=== PATIENT | male | born 1945 | race Caucasian/White ===

== ENCOUNTER 2017-05-20 10:06 | Emergency (ER) | payer MEDICARE, BC ==
[2017-05-20] MEDS ORDERED: ASPIRIN 81 MG TABLET, CHEWABLE PO ONE (10:14)
--- NOTE | 2017-05-20 10:32 | ER Document Report ---
ED Cardiac - General Mode of Arrival: Medic Information source: Patient TRAVEL OUTSIDE OF THE [place] IN LAST 30 DAYS: No - HPI Patient complains to provider of: Chest pain Quality of pain: Sharp Associated symptoms: Shortness of breath <CHELSEY DICK - Last Filed: 05/20/17 13:19> <AMADA HINKLE - Last Filed: 05/20/17 14:08> - General Chief Complaint: Chest Pain > 30 Stated Complaint: CHEST PAIN Time Seen by Provider: 05/20/17 10:21 Notes: Patient is a 71-year-old male that presents to the emergency department today with complaints of chest pain for the last 4-5 days. Patient states he has stayed in bed for most of the time because once he gets comfortable, the chest pain seems to go away. Patient states his chest pain is exacerbated with movement and deep breathing. Patient has a history of left shoulder surgeries and he states he has been having pain in his left shoulder for months and he is unsure if this is related to his chest pain. Patient describes the pain as sharp. Patient states he has had associated shortness of breath. Patient states to his knowledge he has never had a cardiac catheterization or stress test. (CHELSEY DICK) - Related Data Allergies/Adverse Reactions: Iodinated Contrast- Oral and IV Dye [IV Dye, Iodine Containing] Allergy (Severe , Verified 06/21/12 00:24) Generalized Itching Past Medical History - General Information source: Patient - Social History Smoking Status: Former Smoker Cigarette use (# per day): No Frequency of alcohol use: None Drug Abuse: None Lives with: Family Family History: Reviewed & Not Pertinent - Past Medical History Cardiac Medical History: Reports: Hx Heart Attack - pt states "silent", Hx Heart Murmur - pt states "sometimes it gets real low" GI Medical History: Reports: Hx Gastroesophageal Reflux Disease Musculoskeltal Medical History: Reports Hx Arthritis Past Surgical History: Reports: Hx Appendectomy - Immunizations Hx Diphtheria, Pertussis, Tetanus Vaccination: Yes <CHELSEY DICK - Last Filed: 05/20/17 13:19> Review of Systems - Review of Systems Constitutional: No symptoms reported EENT: No symptoms reported Cardiovascular: See HPI, Chest pain Respiratory: See HPI, Short of breath Gastrointestinal: No symptoms reported Genitourinary: No symptoms reported Male Genitourinary: No symptoms reported Musculoskeletal: See HPI, Joint pain - left shoulder Skin: No symptoms reported Hematologic/Lymphatic: No symptoms reported Neurological/Psychological: No symptoms reported -: Yes All other systems reviewed and negative <KAPILCHELSEY - Last Filed: 05/20/17 13:19> Physical Exam <CHELSEY DICK - Last Filed: 05/20/17 13:19> <AMADA HINKLE - Last Filed: 05/20/17 14:08> - Vital signs Vitals: Temp Pulse Resp BP Pulse Ox 98.9 F 68 21 H 124/72 94 05/20/17 10:20 05/20/17 10:20 05/20/17 10:20 05/20/17 10:20 05/20/17 10:20 - Notes Notes: PHYSICAL EXAM GENERAL: Alert, interacts well. No acute distress. HEAD: Normocephalic, atraumatic. EYES: Pupils equal, round, and reactive to light. Extraocular movements intact. ENT: Oral mucosa moist, tongue midline. NECK: Full range of motion. Supple. Trachea midline. LUNGS: Clear to auscultation bilaterally, no wheezes, rales, or rhonchi. No respiratory distress. CHEST: Mild anterior chest wall tenderness with palpation. HEART: Regular rate and rhythm. No murmurs, gallops, or rubs. ABDOMEN: Obese. Soft, non-tender. Non-distended. No guarding, rebound, or rigidity. Bowel sounds present in all 4 quadrants. EXTREMITIES: Moves all 4 extremities spontaneously. No edema, radial and dorsalis pedis pulses 2/4 bilaterally. No cyanosis. NEUROLOGICAL: Alert and oriented x3. Normal speech. PSYCH: Normal affect, normal mood. SKIN: Warm, dry, normal turgor. No rashes or lesions noted. (CHELSEY DICK) Course - Laboratory Result Diagrams: 05/20/17 10:18 05/20/17 10:18 <CHELSEY DICK - Last Filed: 05/20/17 13:19> - Laboratory Result Diagrams: 05/20/17 10:18 05/20/17 10:18 <AMADA HINKLE - Last Filed: 05/20/17 14:08> - Re-evaluation Re-evalutation: 05/20/17 11:25 Pt. requests to be transferred to [facility] 05/20/17 11:28 Spoke with [facility] transfer center, awaiting call back 05/20/17 11:[address] Childress on behalf of attending Dr. De La Paz from [facility]. Accepted patient. (CHELSEY DICK) 05/20/17 13:24 EKG shows new left bundle branch block but does not fit sgarbossa criteria, CBC shows leukocytosis of 12.9, CMP shows some acute renal failure with a BUN of 20 and creatinine of 2.26, cardiac enzymes are grossly elevated with a CK of 829, CK-MB of 14.8 and troponin of 42.3, proBNP elevated at 2090, chest x-ray shows cardiomegaly without failure. Patient's pain is relieved while lying flat, worsened when taking deep breaths. Patient was given aspirin by EMS. Discussed patient's non-STEMI with [facility], resident accepted on behalf of Dr. De La Paz, patient will be transported shortly. 05/20/17 13:26 Treated with therapeutic dose of Lovenox, 1 mg/kg. 05/20/17 14:07 Pain-free, vital signs stable, transport at bedside, I just answered more questions for the patient and his daughter, patient is stable for transport. Repeat troponin is pending per [facility]'s request. (AMADA HINKLE) - Vital Signs Vital signs: Temp Pulse Resp BP Pulse Ox 98.9 F 68 22 H 116/66 96 05/20/17 10:20 05/20/17 10:20 05/20/17 13:01 05/20/17 13:01 05/20/17 11:30 - Laboratory Laboratory results interpreted by id: 05/20/17 05/20/17 05/20/17 10:18 10:18 10:18 WBC 12.9 H RBC 4.30 L Plt Count 116 L Seg Neutrophils % 83.1 H Lymphocytes % 6.5 L Absolute Neutrophils 10.7 H Sodium 135.4 L Creatinine 2.26 H Est GFR ( Amer) 35 L Est GFR (Non-Af Amer) 29 L Total Bilirubin 1.6 H Direct Bilirubin 0.6 H AST 127 H Creatine Kinase 829 H CK-MB (CK-2) 14.80 H NT-Pro-B Natriuret Pep 05/20/17 10:18 WBC RBC Plt Count Seg Neutrophils % Lymphocytes % Absolute Neutrophils Sodium Creatinine Est GFR ( Amer) Est GFR (Non-Af Amer) Total Bilirubin Direct Bilirubin AST Creatine Kinase CK-MB (CK-2) NT-Pro-B Natriuret Pep 2089 H - EKG Interpretation by Me Additional EKG results interpreted by me: 05/20/17 13:25 EKG shows sinus rhythm at a rate of 68, left bundle branch block, 1 PVC, negative sgarbossa criteria per my interpretation. (AMADA HINKLE) Critical Care Note - Critical Care Note Total time excluding time spent on procedures (mins): 45 <AMADA HINKLE - Last Filed: 05/20/17 14:08> Discharge <CHELSEY DICK - Last Filed: 05/20/17 13:19> <AMADA HINKLE - Last Filed: 05/20/17 14:08> - Discharge Clinical Impression: NSTEMI (non-ST elevated myocardial infarction) Acute renal failure Qualifiers: Acute renal failure type: unspecified Qualified Code(s): N17.9 - Acute kidney failure, unspecified Condition: Fair Disposition: [facility] Referrals: TIERNEY WILDE PA [Primary Care Provider] - Follow up as needed Scribe Attestation: 05/20/17 13:26 I personally performed the services described in the documentation, reviewed and edited the documentation which was dictated to the scribe in my presence, and it accurately records my words and actions. (AMADA HINKLE) Scribe Documentation - Scribe Written by Cinthia:: Cinthia Sarabia, 05/20/2017 1259 acting as scribe for :: Nory <CHELSEY DICK - Last Filed: 05/20/17 13:19>
[2017-05-20 10:34] LABS: ABSOLUTE BASOPHILS # (AUTO) 0.1 10^3/uL (0.0-0.2); ABSOLUTE EOSINOPHILS # (AUTO) 0.2 10^3/uL (0.0-0.6); ABSOLUTE LYMPHOCYTES (AUTO) 0.8 10^3/uL (0.5-4.7); ABSOLUTE MONOCYTES (AUTO) 1.1 10^3/uL (0.1-1.4); ABSOLUTE NEUT (AUTO) 10.7 10^3/uL (1.7-8.2); BASOPHILS % (AUTO) 0.5 % (0-2); EOSINOPHILS % (AUTO) 1.2 % (0-6); HEMATOCRIT 39.9 % (37.9-51.0); HEMOGLOBIN 13.7 g/dL (13.5-17.0); HGB HCT DIFFERENCE 1.2; LYMPHOCYTES % (AUTO) 6.5 % (13-45); MEAN CORPUSCULAR HGB CONC 34.5 g/dL (32.0-36.0); MEAN CORPUSCULAR VOLUME 93 fl (80-97); MONOCYTES % (AUTO) 8.7 % (3-13); RED CELL DISTRIBUTION WIDTH 12.8 % (11.5-14.0); SEGMENTED NEUTROPHILS % (AUTO) 83.1 % (42-78); WHITE BLOOD COUNT 12.9 10^3/uL (4.0-10.5)
[2017-05-20 10:48] LABS: ALANINE AMINOTRANSFERASE 50 U/L (21-72); ALBUMIN 3.6 g/dL (3.5-5.0); ALKALINE PHOSPHATASE 88 U/L (38-126); ANION GAP 8 (5-19); ASPARTATE AMINO TRANSFERASE 127 U/L (17-59); BILIRUBIN,DIRECT 0.6 mg/dL (0.0-0.4); BILIRUBIN,TOTAL 1.6 mg/dL (0.2-1.3); BLOOD UREA NITROGEN 20 mg/dL (7-20); CALCIUM 8.7 mg/dL (8.4-10.2); CARBON DIOXIDE 26 mmol/L (22-30); CHLORIDE 101 mmol/L (98-107); CREATINE KINASE 829 U/L (55-170); CREATININE RESULT 2.26 mg/dL (0.52-1.25); GLUCOSE 92 mg/dL (75-110); POTASSIUM 3.6 mmol/L (3.6-5.0); SODIUM 135.4 mmol/L (137-145); TOTAL PROTEIN 7.4 g/dL (6.3-8.2)
[2017-05-20] MEDS ORDERED: NORMAL SALINE 1000 ML 1,000 ML IV ONE (10:56)
[2017-05-20 10:58] LABS: CREATINE KINASE MB 14.8 ng/mL (<4.55)
[2017-05-20 11:04] LABS: TROPONIN I 42.3 ng/mL
[2017-05-20] MEDS ORDERED: ENOXAPARIN SODIUM INJ 120 MG/0.8 ML DISP.SYRIN SUBCUT ONE (11:11)
--- NOTE | 2017-05-20 11:57 | RADIOLOGY REPORT (SQ) ---
EXAM DESCRIPTION: CHEST SINGLE VIEW COMPLETED DATE/TIME: 05/20/2017 11:24 am REASON FOR STUDY: cp COMPARISON: 06/21/2012 EXAM PARAMETERS: NUMBER OF VIEWS: One view. TECHNIQUE: Single frontal radiographic view of the chest acquired. RADIATION DOSE: NA LIMITATIONS: None. FINDINGS: LUNGS AND PLEURA: No opacities, masses or pneumothorax. No pleural effusion. MEDIASTINUM AND HILAR STRUCTURES: No masses. Contour normal. HEART AND VASCULAR STRUCTURES: Cardiomegaly. There is no chelo CHF. BONES: No acute findings. HARDWARE: None in the chest. OTHER: No other significant finding. IMPRESSION: Cardiomegaly without failure. TECHNICAL DOCUMENTATION: JOB ID: [id number]
[2017-05-20 13:06] VITALS: BP 116/66
--- NOTE | 2017-05-20 16:46 | EKG REPORT ---
SEVERITY:- ABNORMAL ECG - SINUS RHYTHM VENTRICULAR PREMATURE COMPLEX LEFT BUNDLE BRANCH BLOCK : Confirmed by: Nikky Durham MD 20-May-2017 16:44:50
== END 2017-05-20 14:00 | disposition short-term general hospital (02) ==
LOC: ER 10:06
DX: I21.4 Non-ST elevation (NSTEMI) myocardial infarction (principal); N17.9 Acute kidney failure, unspecified; R07.9 Chest pain, unspecified; R06.02 Shortness of breath; K21.9 Gastro-esophageal reflux disease without esophagitis; Z87.891 Personal history of nicotine dependence; I25.2 Old myocardial infarction
CPT/HCPCS: 93005; 99291; 96372; 96360; 36415; 82553; 82550; 85025; 80053; 84484; 83880; 71010; 93010; J1650; J7030

== ENCOUNTER → 2018-07-31 | Day surgery (SDC) | payer MEDICARE, BC ==
--- NOTE | 2018-07-31 14:23 | RADIOLOGY REPORT (SQ) ---
EXAM DESCRIPTION: ARTHRO SHOULDER INJECTION; FLUORO/NEEDLE PLACEMENT COMPLETED DATE/TIME: 07/31/2018 2:04 pm REASON FOR STUDY: PAIN IN LEFT SHOULDER (M25.512) M25.512 PAIN IN LEFT SHOULDER COMPARISON: None. FLUOROSCOPY TIME: 0.2 minutes 3 digital radiographic images saved to PACS. LIMITATIONS: None. PROCEDURE: Procedure, risks, benefits and alternatives explained to patient who then gave written co nsent. Patient gives a history of blistering and hives with skin contact to Iodinated contrast. He was pre-medicated with Benadryl Pepcid and prednisone, and full strength gadolinium was used for CT a rthrogram rather than any iodine based contrast. The posterior left shoulder was marked and a time o ut was called for correct procedure verification. Posterior entry site marked using fluoroscopic edilberto dance. Shoulder prepped and draped using sterile technique. Local anesthesia achieved using 5 mL 1% lidocaine injection. 22 gauge spinal needle introduced into the joint space under direct fluoroscop ic visualization. Gadolinium contrast instilled to confirm intra-articular position. Full strength gadolinium solution then injected. Needle removed and entry site covered with sterile bandage. No im mediate complications noted. TECHNIQUE: Digital images acquired during fluoroscopy and stored on PACS. Patient immediately take n to the CT suite for additional imaging. INJECTION LOCATION: Posterior left glenohumeral joint CONTRAST TYPE AND AMOUNT: 10 mL of a full-strength dotarem IMPRESSION: SUCCESSFUL NEEDLE PLACEMENT AND INJECTION FOR LEFT SHOULDER CT ARTHROGRAM USING POSTERIO R APPROACH. COMMENT: Quality ID 145: Final reports for procedures using fluoroscopy that document radiation exp osure indices, or exposure time and number of fluorographic images (if radiation exposure indices are not available) TECHNICAL DOCUMENTATION: JOB ID: [id number] [employer]- All Rights Reserved Reading location - IP/workstation name: [email or web address]
--- NOTE | 2018-07-31 14:30 | RADIOLOGY REPORT (SQ) ---
EXAM DESCRIPTION: CT LT UPPER EXTREMITY WITH COMPLETED DATE/TIME: 07/31/2018 2:15 pm REASON FOR STUDY: PAIN IN LEFT SHOULDER (M25.512) M25.512 PAIN IN LEFT SHOULDER COMPARISON: None. TECHNIQUE: Axial imaging performed through the leftshoulder with reformatted oblique coronal and obl ique sagittal imaging windowed for bone and soft tissues. All CT scanners at this facility use dose modulation, iterative reconstruction, and/or weight based d osing when appropriate to reduce radiation dose to as low as reasonably achievable (ALARA). [facility]: Dose Right [facility]: CareDose [facility]: Dose Right [facility]: Teradose 4D [facility]: Bactest RADIATION DOSE: CT Rad equipment meets quality standard of care and radiation dose reduction techniq ues were employed. CTDIvol: 26.1 mGy. DLP: 799 mGy-cm. mGy. LIMITATIONS: None. FINDINGS: SOFT TISSUES: Unremarkable. Left lung apex clear. No left axillary adenopathy. Streak a rtifact from battery pack, left-sided dual lead pacemaker BONY ARCHITECTURE: No fracture. No lytic or blastic lesions. Small subcortical cysts along the grea ter tuberosity left humeral head. GLENOHUMERAL JOINT: Normal alignment. No significant chondromalacia. ACROMION AND AC JOINT: Type 1 acromion with mild acromioclavicular joint hypertrophy ROTATOR CUFF: Small full-thickness tear anterior edge of the supraspinatus tendon extending into the rotator interval, best shown on axial image 25-28, sagittal reconstruction images 44 through 52, and coronal images 24-27. Infraspinatus, subscapularis are intact. GLENOID, LABRUM AND BICEPS: Intact long head intra-articular biceps and glenoid labrum OTHER: No other significant finding. IMPRESSION: Small full-thickness tear anterior edge of the left supraspinatus tendon extending into the rotator interval TECHNICAL DOCUMENTATION: JOB ID: [id number] Quality ID # [id number]: Final reports with documentation of one or more dose reduction techniques (e.g., Au tomated exposure control, adjustment of the mA and/or kV according to patient size, use of iterative reconstruction technique) 2010 [employer]- All Rights Reserved Reading location - IP/workstation name: [facility]
== END ==
LOC: RAD 07-30 12:35
PROVIDERS: ATTEND Orthopaedic Surgery
DX: M75.122 Complete rotator cuff tear or rupture of left shoulder, not specified as traumatic (principal); M25.512 Pain in left shoulder
CPT/HCPCS: 77002; 23350; 73201; A9576

== ENCOUNTER → 2018-08-27 | Outpatient (CLI) | payer MEDICARE, BC ==
[2018-08-27 10:46] LABS: HEMATOCRIT 43.9 % (37.9-51.0); HEMOGLOBIN 15.4 g/dL (13.5-17.0); MEAN CORPUSCULAR HGB CONC 35.2 g/dL (32.0-36.0); MEAN CORPUSCULAR VOLUME 94 fl (80-97); PLATELET COUNT 135 10^3/uL (150-450); RED BLOOD COUNT 4.68 10^6/uL (4.35-5.55); RED CELL DISTRIBUTION WIDTH 13.5 % (11.5-14.0); WHITE BLOOD COUNT 7.2 10^3/uL (4.0-10.5)
[2018-08-27 11:08] LABS: ANION GAP 8 (5-19); BLOOD UREA NITROGEN 21 mg/dL (7-20); CARBON DIOXIDE 28 mmol/L (22-30); CHLORIDE 104 mmol/L (98-107); GLUCOSE 84 mg/dL (75-110); POTASSIUM 3.7 mmol/L (3.6-5.0); SODIUM 140.3 mmol/L (137-145)
== END ==
LOC: OD 09:36
PROVIDERS: ATTEND Internal Medicine Cardiovascular Disease
DX: L02.414 Cutaneous abscess of left upper limb (principal)
CPT/HCPCS: 36415; 80048; 85027

== ENCOUNTER → 2018-09-03 | Outpatient (CLI) | payer MEDICARE, BC ==
[2018-09-03 13:27] LABS: ANION GAP 9 (5-19); BLOOD UREA NITROGEN 24 mg/dL (7-20); CALCIUM 9.1 mg/dL (8.4-10.2); CARBON DIOXIDE 23 mmol/L (22-30); CHLORIDE 105 mmol/L (98-107); GLUCOSE 96 mg/dL (75-110); POTASSIUM 5.1 mmol/L (3.6-5.0); SODIUM 136.8 mmol/L (137-145)
== END ==
LOC: OD 12:34
PROVIDERS: ATTEND Physician Assistant
DX: N18.3 Chronic kidney disease, stage 3 (moderate) (principal); Z79.899 Other long term (current) drug therapy
CPT/HCPCS: 36415; 80048

== ENCOUNTER → 2018-09-05 | Outpatient (CLI) | payer MEDICARE, BC ==
[2018-09-05 10:06] LABS: ANION GAP 7 (5-19); BLOOD UREA NITROGEN 21 mg/dL (7-20); CALCIUM 9.2 mg/dL (8.4-10.2); CARBON DIOXIDE 28 mmol/L (22-30); CHLORIDE 104 mmol/L (98-107); GLUCOSE 79 mg/dL (75-110); POTASSIUM 4.5 mmol/L (3.6-5.0); SODIUM 139.2 mmol/L (137-145)
== END ==
LOC: LAB 09:16
PROVIDERS: ATTEND Internal Medicine Cardiovascular Disease
DX: N18.3 Chronic kidney disease, stage 3 (moderate) (principal); Z79.899 Other long term (current) drug therapy
CPT/HCPCS: 36415; 80048

== ENCOUNTER → 2018-09-09 | Outpatient (CLI) | payer MEDICARE, BC ==
[2018-09-09 09:33] LABS: ANION GAP 6 (5-19); BLOOD UREA NITROGEN 18 mg/dL (7-20); CALCIUM 9.1 mg/dL (8.4-10.2); CARBON DIOXIDE 28 mmol/L (22-30); CHLORIDE 105 mmol/L (98-107); GLUCOSE 84 mg/dL (75-110); POTASSIUM 4.3 mmol/L (3.6-5.0); SODIUM 139.2 mmol/L (137-145)
== END ==
LOC: LAB 08:49
PROVIDERS: ATTEND Internal Medicine Cardiovascular Disease
DX: N18.3 Chronic kidney disease, stage 3 (moderate) (principal); Z79.899 Other long term (current) drug therapy
CPT/HCPCS: 36415; 80048

== ENCOUNTER → 2018-09-17 | Outpatient (CLI) | payer MEDICARE, BC ==
[2018-09-17 12:18] LABS: HEMATOCRIT 42.9 % (37.9-51.0); HEMOGLOBIN 14.9 g/dL (13.5-17.0); MEAN CORPUSCULAR HGB CONC 34.7 g/dL (32.0-36.0); MEAN CORPUSCULAR VOLUME 95 fl (80-97); PLATELET COUNT 141 10^3/uL (150-450); RED BLOOD COUNT 4.51 10^6/uL (4.35-5.55); RED CELL DISTRIBUTION WIDTH 13.8 % (11.5-14.0)
[2018-09-17 12:30] LABS: ANION GAP 6 (5-19); BLOOD UREA NITROGEN 22 mg/dL (7-20); CALCIUM 9.1 mg/dL (8.4-10.2); CARBON DIOXIDE 27 mmol/L (22-30); CHLORIDE 104 mmol/L (98-107); GLUCOSE 97 mg/dL (75-110); POTASSIUM 4.4 mmol/L (3.6-5.0); SODIUM 137.3 mmol/L (137-145)
== END ==
LOC: LAB 11:57
PROVIDERS: ATTEND Physician Assistant
DX: R06.00 Dyspnea, unspecified (principal)
CPT/HCPCS: 36415; 80048; 83880; 85027

== ENCOUNTER → 2018-11-19 | Outpatient (CLI) | payer MEDICARE, BC ==
[2018-11-19 09:14] LABS: ANION GAP 8 (5-19); BLOOD UREA NITROGEN 12 mg/dL (7-20); CALCIUM 9.3 mg/dL (8.4-10.2); CARBON DIOXIDE 27 mmol/L (22-30); CHLORIDE 103 mmol/L (98-107); GLUCOSE 88 mg/dL (75-110); POTASSIUM 3.7 mmol/L (3.6-5.0); SODIUM 138.1 mmol/L (137-145)
== END ==
LOC: LAB 08:18
PROVIDERS: ATTEND Physician Assistant
DX: I10 Essential (primary) hypertension (principal); Z79.899 Other long term (current) drug therapy
CPT/HCPCS: 36415; 80048

== ENCOUNTER → 2019-02-19 | Outpatient (CLI) | payer MEDICARE, BC ==
[2019-02-19 08:54] LABS: HEMATOCRIT 46.7 % (37.9-51.0); MEAN CORPUSCULAR HEMOGLOBIN 32.8 pg (27.0-33.4); MEAN CORPUSCULAR HGB CONC 34.2 g/dL (32.0-36.0); MEAN CORPUSCULAR VOLUME 96 fl (80-97); PLATELET COUNT 142 10^3/uL (150-450); RED BLOOD COUNT 4.88 10^6/uL (4.35-5.55); RED CELL DISTRIBUTION WIDTH 13.7 % (11.5-14.0); WHITE BLOOD COUNT 8.6 10^3/uL (4.0-10.5)
== END ==
LOC: LAB 08:31
PROVIDERS: ATTEND Physician Assistant
DX: M10.9 Gout, unspecified (principal); I50.9 Heart failure, unspecified; I25.5 Ischemic cardiomyopathy; I10 Essential (primary) hypertension; Z79.899 Other long term (current) drug therapy
CPT/HCPCS: 36415; 83880; 84550; 85027

== ENCOUNTER → 2019-05-18 | Outpatient (CLI) | payer MEDICARE, BC ==
[2019-05-18 09:54] LABS: ANION GAP 9 (5-19); BLOOD UREA NITROGEN 17 mg/dL (7-20); CALCIUM 9.2 mg/dL (8.4-10.2); CARBON DIOXIDE 28 mmol/L (22-30); CHLORIDE 104 mmol/L (98-107); GLUCOSE 86 mg/dL (75-110); POTASSIUM 3.9 mmol/L (3.6-5.0); URIC ACID 6.9 mg/dL (3.5-8.5)
[2019-05-18 10:00] LABS: C-REACTIVE PROTEIN < 5.0 mg/L (<10.0)
[2019-05-19 14:43] LABS: ANTINUCLEAR ANTIBODIES Negative (Negative)
== END ==
LOC: LAB 08:41
PROVIDERS: ATTEND Physician Assistant
DX: M25.9 Joint disorder, unspecified (principal); I10 Essential (primary) hypertension; E55.9 Vitamin D deficiency, unspecified; Z79.899 Other long term (current) drug therapy
CPT/HCPCS: 36415; 80048; 82306; 84550; 85652; 86038; 86140; 86430

== ENCOUNTER → 2020-04-11 | Outpatient (CLI) | payer MEDICARE, BC ==
[2020-04-11 10:38] LABS: ALBUMIN 4.3 g/dL (3.5-5.0); ALKALINE PHOSPHATASE 56 U/L (38-126); ANION GAP 10 (5-19); ASPARTATE AMINO TRANSFERASE 27 U/L (17-59); BILIRUBIN,TOTAL 0.9 mg/dL (0.2-1.3); BLOOD UREA NITROGEN 18 mg/dL (7-20); CALCIUM 9.2 mg/dL (8.4-10.2); CARBON DIOXIDE 27 mmol/L (22-30); CHLORIDE 105 mmol/L (98-107); CHOLESTEROL 152.44 mg/dL (0-200); GLUCOSE 82 mg/dL (75-110); POTASSIUM 4.2 mmol/L (3.6-5.0); TOTAL PROTEIN 8.4 g/dL (6.3-8.2); TRIGLYCERIDES 199 mg/dL (<150)
[2020-04-11 10:49] LABS: DIRECT LDL 56 mg/dL (<100)
[2020-04-11 10:54] LABS: VLDL CHOLESTEROL 39.8 mg/dL (10-31)
== END ==
LOC: OD 08:49
PROVIDERS: ATTEND Physician Assistant
DX: E78.00 Pure hypercholesterolemia, unspecified (principal); I10 Essential (primary) hypertension; M10.9 Gout, unspecified; Z79.899 Other long term (current) drug therapy
CPT/HCPCS: 36415; 80048; 80061; 80076; 84550

== ENCOUNTER → 2020-06-12 | Outpatient (CLI) | payer MEDICARE, BC | LOC: OD 09:03 | PROVIDERS: ATTEND Physician Assistant | DX: M10.9 Gout, unspecified (principal) | CPT/HCPCS: 36415; 84550 ==

== ENCOUNTER 2020-09-16 10:08 | Inpatient (IN) | payer MEDICARE, BC ==
[2020-09-16] MEDS ORDERED: ACETAMINOPHEN 325 MG TABLET PO ONE (10:37)
--- NOTE | 2020-09-16 10:39 | ER Document Report ---
ED Dizziness/Weakness - General Stated Complaint: WEAKNESS/DIFFICULTY BREATHING Time Seen by Provider: 09/16/20 10:31 Primary Care Provider: TIERNEY WILDE PA-C [Primary Care Provider] - Follow up as needed Mode of Arrival: Medic Information source: Patient Notes: 74-year-old male arrives by EMS with chief complaint of having 1 week history of increased shortness of breath and weakness and fever. He arrives with 103.1 fever. He has multiple lesions over his lungs. He advises he stopped smoking several years ago and had a pacemaker placed and at that time as well. Used to be a heavy drinker but none for many years now. Patient's chest x-ray revealed multiple lesions and therefore CT scan was ordered. He "does not use oxygen at home but does have some with his acetylene tank because he used to be a combination welder apprentice doing horse trailers." Patient saturations on 5 L are around 93 to 95%. I spoke with his Berta with nursing staff around 1245 and she advises he was very confused early this morning stumbling around in the bathroom and having a low sats from a pulse ox at home. She also reports she lost her left kidney in 1983 due to cancer and stopped smoking at that time. She called EMS this morning. She has no Covid symptoms herself. TRAVEL OUTSIDE OF THE [place] IN LAST 30 DAYS: No - HPI Patient complains to provider of: Weakness Onset: Last week Onset/Duration: Sudden, Persistent, Worse Quality of pain: Fullness Severity: Mild Associated symptoms: Weak all over Baseline gait: Walks w/o assistance - Related Data Allergies/Adverse Reactions: Iodinated Contrast Media [IV Dye, Iodine Containing] Allergy (Severe, Verified 06/21/12 00:24) Generalized Itching Past Medical History - General Information source: Patient - Social History Smoking Status: Former Smoker Cigarette use (# per day): No Chew tobacco use (# tins/day): No Smoking Education Provided: No Frequency of alcohol use: None Lives with: Family Family History: Reviewed & Not Pertinent Patient has suicidal ideation: No Patient has homicidal ideation: No - Past Medical History Cardiac Medical History: Reports: Hx Heart Attack - pt states "silent", Hx Heart Murmur - pt states "sometimes it gets real low" Denies: Hx Coronary Artery Disease, Hx Hypercholesterolemia, Hx Hypertension Pulmonary Medical History: Denies: Hx Asthma, Hx Bronchitis, Hx COPD, Hx Pneumonia, Hx Tuberculosis Neurological Medical History: Denies: Hx Cerebrovascular Accident, Hx Seizures GI Medical History: Reports: Hx Gastroesophageal Reflux Disease Musculoskeletal Medical History: Reports Hx Arthritis Past Surgical History: Reports: Hx Appendectomy. Denies: Hx Pacemaker - Immunizations Hx Diphtheria, Pertussis, Tetanus Vaccination: Yes Review of Systems - Review of Systems Constitutional: See HPI, Fever, Weakness, Recent illness EENT: No symptoms reported Cardiovascular: See HPI, Orthopnea, Dyspnea Respiratory: Cough - Nonproductive Gastrointestinal: No symptoms reported Genitourinary: No symptoms reported Male Genitourinary: No symptoms reported Musculoskeletal: No symptoms reported Skin: No symptoms reported Hematologic/Lymphatic: No symptoms reported Neurological/Psychological: See HPI, Weakness Physical Exam - Vital signs Vitals: Temp Pulse Resp BP Pulse Ox 102.1 F H 83 28 H 153/112 H 93 09/16/20 10:08 09/16/20 10:08 09/16/20 10:08 09/16/20 10:08 09/16/20 10:08 Interpretation: Hypertensive, Tachypneic, Febrile - General General appearance: Appears well, Alert - HEENT Head: Normocephalic, Atraumatic Eyes: Normal Pupils: PERRL - Respiratory Respiratory status: No respiratory distress Chest status: Nontender Breath sounds: Decreased air movement, Nonproductive cough, Wheezing Chest palpation: Normal - Cardiovascular Rhythm: Regular Heart sounds: Normal auscultation Murmur: No - Abdominal Inspection: Normal Distension: No distension Bowel sounds: Normal Tenderness: Nontender Organomegaly: No organomegaly - Rectal Prostate: Other - Deferred - Genitourinary Scrotum: Other - Deferred - Back Back: Normal, Nontender - Extremities General upper extremity: Normal inspection, Nontender, Normal color, Normal ROM, Normal temperature General lower extremity: Normal inspection, Nontender, Normal color, Normal ROM, Normal temperature, Normal weight bearing. No: Ene's sign - Neurological Neuro grossly intact: Yes Cognition: Normal Orientation: AAOx4 Shadia Coma Scale Eye Opening: Spontaneous [place] Coma Scale Verbal: Oriented [place] Coma Scale Motor: Obeys Commands Shadia Coma Scale Total: 15 Speech: Normal Motor strength normal: LUE, RUE, LLE, RLE Sensory: Normal - Psychological Associated symptoms: Normal affect, Normal mood - Skin Skin Temperature: Warm Skin Moisture: Dry Skin Color: Normal Course - Vital Signs Vital signs: Temp Pulse Resp BP Pulse Ox 102.1 F H 83 28 H 153/112 H 93 09/16/20 10:08 09/16/20 10:08 09/16/20 10:08 09/16/20 10:08 09/16/20 10:08 - Laboratory Results Result Diagrams: 09/16/20 11:30 09/16/20 11:30 Laboratory Results Interpreted: 09/16/20 09/16/20 09/16/20 11:30 11:30 12:02 RBC 4.32 L Plt Count 86 L Lymph % (Auto) 10.6 L Seg Neutrophils % 82.9 H Sodium 131.6 L BUN 31 H Creatinine 2.72 H Est GFR ( Amer) 28 L Est GFR (MDRD) Non-Af 23 L Calcium 8.1 L Direct Bilirubin 0.5 H Albumin 2.9 L SARS-CoV-2 (PCR) DETECTED H Critical Laboratory Results Reviewed: Yes Attending or Supervising Physician who Reviewed Labs: JULIA JIM JR - Radiology Results Critical Radiology Results Reviewed: Yes Attending or Supervising Physician who Reviewed Radiology: JULIA IJM JR Critical Care Note - Critical Care Note Total time excluding time spent on procedures (mins): 60 - After ordering CT and speaking with hospitalist and extra care speaking with the . Comments: I spoke with TOMAS Chavez and she will see the patient in the room. Discharge - Discharge Clinical Impression: Pneumonia due to COVID-19 virus Fever Qualifiers: Fever type: unspecified Qualified Code(s): R50.9 - Fever, unspecified Hypertension Qualifiers: Hypertension type: unspecified Qualified Code(s): I10 - Essential (primary) hypertension Condition: Stable Disposition: ADMITTED INPATIENT Admitting Provider: TOMAS Lyons Unit Admitted: Medical Floor Instructions: COVID-19 Guidance for Persons Under Investigation Referrals: TIERNEY WILDE PA-C [Primary Care Provider] - Follow up as needed
--- NOTE | 2020-09-16 10:39 | RADIOLOGY REPORT (SQ) ---
EXAM DESCRIPTION: CHEST SINGLE VIEW IMAGES COMPLETED DATE/TIME: 09/16/2020 10:28 am REASON FOR STUDY: bed 6 sepsis protocol COMPARISON: 06/21/2012. EXAM PARAMETERS: NUMBER OF VIEWS: One view. TECHNIQUE: Single frontal radiographic view of the chest acquired. RADIATION DOSE: NA LIMITATIONS: None. FINDINGS: LUNGS AND PLEURA: Faint peripheral airspace disease, most noticeable in the left lung. MEDIASTINUM AND HILAR STRUCTURES: No masses. Contour normal. HEART AND VASCULAR STRUCTURES: Heart upper limits of normal in size. Normal vasculature. BONES: No acute findings. HARDWARE: Defibrillator. OTHER: No other significant finding. IMPRESSION: FAINT AIRSPACE DISEASE CONCERNING FOR BILATERAL PNEUMONIA. TECHNICAL DOCUMENTATION: JOB ID: [id number] 2010 [employer]- All Rights Reserved Reading location - IP/workstation name: [email or web address]
[2020-09-16] MEDS ORDERED: VANCOMYCIN HCL INJ 1000 MG VIAL IV ONE (11:00)
[2020-09-16] MEDS ORDERED: DEXAMETHASONE SOD PHOS INJ 10 MG/1 ML VIAL IV ONE (11:01)
[2020-09-16] MEDS ORDERED: PIPERACILLIN/TAZOBACTAM 3.375 GM VIAL IV ONE (11:01)
[2020-09-16] MEDS ORDERED: IVERMECTIN 3 MG TABLET PO ONE (11:26)
[2020-09-16] MEDS ORDERED: CHOLECALCIFEROL (D3) 1,000 UNIT (25 MCG) TABLET PO ONE (11:27)
--- NOTE | 2020-09-16 11:47 | RADIOLOGY REPORT (SQ) ---
EXAM DESCRIPTION: CT CHEST WITHOUT IMAGES COMPLETED DATE/TIME: 09/16/2020 11:02 am REASON FOR STUDY: sob COMPARISON: Chest x-ray dated 09/16/2020. TECHNIQUE: CT scan performed of the chest without intravenous contrast. Images reviewed with lung, soft tissue and bone windows. Reconstructed coronal and sagittal MPR images reviewed. All images st ored on PACS. All CT scanners at this facility use dose modulation, iterative reconstruction, and/or weight based d osing when appropriate to reduce radiation dose to as low as reasonably achievable (ALARA). [facility]: Dose Right [facility]: CareDose [facility]: Dose Right [facility]: Teradose 4D [facility]: [employer] RADIATION DOSE: CT Rad equipment meets quality standard of care and radiation dose reduction techniq ues were employed. CTDIvol: 16.1 mGy. DLP: 602 mGy-cm. mGy. LIMITATIONS: Motion artifact. FINDINGS: LUNGS AND PLEURA: Diffuse bilateral ground-glass infiltrates. No pleural effusion. No pn eumothorax. HILAR AND MEDIASTINAL STRUCTURES: No identified masses or abnormal nodes. No obvious aneurysm. HEART AND VASCULAR STRUCTURES: No aneurysm. No pericardial effusion. UPPER ABDOMEN: No significant findings. Limited exam. THYROID AND OTHER SOFT TISSUES: No masses. No adenopathy. BONES: No significant finding. HARDWARE: Defibrillator. OTHER: No other significant findings. IMPRESSION: DIFFUSE BILATERAL GROUND-GLASS INFILTRATES, CONSISTENT WITH COVID-19 PNEUMONIA. TECHNICAL DOCUMENTATION: JOB ID: [id number] Quality ID # [id number]: Final reports with documentation of one or more dose reduction techniques (e.g., Au tomated exposure control, adjustment of the mA and/or kV according to patient size, use of iterative reconstruction technique) 2010 [employer]- All Rights Reserved Reading location - IP/workstation name: [email or web address]
[2020-09-16 12:00] LABS: VENOUS BLOOD BASE EXCESS -3.1 mmol/L; VENOUS BLOOD HCO3 23.5 mmol/L (20-32); VENOUS BLOOD PCO2 47.8 mmHg (35-63); VENOUS BLOOD PH 7.31 (7.30-7.42)
[2020-09-16 12:05] LABS: ALBUMIN 2.9 g/dL (3.5-5.0); ALKALINE PHOSPHATASE 85 U/L (38-126); ANION GAP 6 (5-19); ASPARTATE AMINO TRANSFERASE 43 U/L (17-59); BILIRUBIN,DIRECT 0.5 mg/dL (0.0-0.4); BILIRUBIN,TOTAL 0.9 mg/dL (0.2-1.3); BLOOD UREA NITROGEN 31 mg/dL (7-20); CALCIUM 8.1 mg/dL (8.4-10.2); CARBON DIOXIDE 23 mmol/L (22-30); CHLORIDE 103 mmol/L (98-107); GLUCOSE 96 mg/dL (75-110); POTASSIUM 3.8 mmol/L (3.6-5.0); TOTAL PROTEIN 6.6 g/dL (6.3-8.2)
[2020-09-16 12:07] LABS: ABSOLUTE LYMPHOCYTES (AUTO) 0.5 10^3/uL (0.5-4.7); ABSOLUTE MONOCYTES (AUTO) 0.3 10^3/uL (0.1-1.4); ABSOLUTE NEUT (AUTO) 3.6 10^3/uL (1.7-8.2); BASOPHILS % (AUTO) 0.5 % (0-2); EOSINOPHILS % (AUTO) 0.2 % (0-6); HEMATOCRIT 40.2 % (37.9-51.0); HEMOGLOBIN 14.1 g/dL (13.5-17.0); LYMPHOCYTES % (AUTO) 10.6 % (13-45); MEAN CORPUSCULAR HEMOGLOBIN 32.6 pg (27.0-33.4); MEAN CORPUSCULAR VOLUME 93 fl (80-97); MONOCYTES % (AUTO) 5.8 % (3-13); RED BLOOD COUNT 4.32 10^6/uL (4.35-5.55); RED CELL DISTRIBUTION WIDTH 13.8 % (11.5-14.0); SEGMENTED NEUTROPHILS % (AUTO) 82.9 % (42-78); TOTAL CELLS COUNTED % (AUTO) 100 %; WHITE BLOOD COUNT 4.4 10^3/uL (4.0-10.5)
[2020-09-16 12:13] LABS: INTERNATIONAL RATION (INR) 1.04; PROTHROMBIN TIME 13.8 SEC (11.4-15.4)
[2020-09-16] MEDS ORDERED: FAMOTIDINE INJ/PF 20 MG/2 ML SDV IV ONE ×2 (12:47→16:30)
[2020-09-16 12:51] LABS: PLATELET COUNT 86 10^3/uL (150-450)
[2020-09-16 13:57] LABS: C-REACTIVE PROTEIN 174.6 mg/L (<10.0)
[2020-09-16] MEDS ORDERED: ACETAMINOPHEN 325 MG TABLET PO PRN (14:02)
[2020-09-16] MEDS ORDERED: ONDANSETRON 4 MG TAB.RAPDIS PO PRN (14:02)
[2020-09-16] MEDS ORDERED: ALBUTEROL SULFATE 0.083% NEB 2.5 MG/3 ML AMPUL NEB PRN (14:02)
[2020-09-16] MEDS ORDERED: NORMAL SALINE 1000 ML 1,000 ML IV ONE ×2 (14:10→14:12)
--- NOTE | 2020-09-16 16:29 | PDOC H&P ---
History of Present Illness Admission Date/PCP: 09/16/20 13:14 TIERNEY WILDE PA-C Patient complains of: Generalized weakness, AMS, shortness of breath History of Present Illness: SHANDRA FIORE is a 74 year old male with PMHx CAD, defibrillator/pacemaker, HTN , CHF, renal CA (nephrectomy), osteoarthritis, gout, who is Covid+, per labs today, who presented to the ED today and is accompanied by his . Patient reports 1 week history of generalized body aches, fatigue, sore throat, chills, intermittent fever, and progressively worsening shortness of breath. Does have a long standing history of shortness of breath, followed by pulm, but states over the past week his shortness of breath on exertion has increased to the point where he cannot even get up out of bed without "puffing". became concerned this morning as patient demonstrated generalized weakness, "like jello", dizziness and confusion. This lasted ~2-2.5 hours in duration. He is now at his baseline. Per O2 sat at home between 85-88% on room air. EMS was called in regards to his change in mental status. Evaluation in emergency department patient was found to be febrile (103F, gave Tylenol, resolved), SBP ranging 90s-low 100s, O2 sat low 90s on 6L NC. Covid + with elevation in ESR, d-dimer (1.67), ferrittin, LDH, and CRP. CBC unremarkable. On chemistries he is hyponatremic with elevated BUN/Creatinine (more so than baseline). Lactic acid 1.3. Troponin 0.036. EKG with paced rhythm. CXR concerning for bilateral pneumonia. CT chest diffuse ground glass infiltrates consistent with Covid-19. He received single dose ivermectin, Decadron, cholecalciferol vancomycin, and Zosyn. Hospitalist team was contacted for further evaluation and treatment. Past Medical History Cardiac Medical History: Reports: Myocardial Infarction - pt states "silent", Heart Murmur - pt states "sometimes it gets real low" Denies: Coronary Artery Disease, Hyperlipidema, Hypertension Pulmonary Medical History: Denies: Asthma, Bronchitis, Chronic Obstructive Pulmonary Disease (COPD), Pneumonia, Tuberculosis Neurological Medical History: Denies: Seizures Endocrine Medical History: Denies: Diabetes Mellitus Type 2, Hyperthyroidism, Hypothyroidism Renal/ Medical History: Reports: Chronic Kidney Disease Malignancy Medical History: Reports: Renal (Kidney) Cancer GI Medical History: Reports: Gastroesophageal Reflux Disease Denies: Cirrhosis Musculoskeltal Medical History: Reports: Arthritis Psychiatric Medical History: Denies: Alcohol Dependency, Tobacco Dependency Hematology: Denies: Anemia Past Surgical History Past Surgical History: Reports: Appendectomy, Cardiac Catheterization, Orthopedic Surgery, Pacemaker, Other - Nephrectomy Social History Information Source: Patient - And Lives with: Spouse/Significant other Smoking Status: Former Smoker Electronic Cigarette use?: No Frequency of Alcohol Use: None Hx Recreational Drug Use: No Hx Prescription Drug Abuse: No - Advance Directive Resuscitation Status: Full Code Family History Family History: CAD, Hypertension Parental Family History Reviewed: Yes Children Family History Reviewed: Yes Sibling(s) Family History Reviewed.: Yes Medication/Allergy Home Medications: Diazepam [Valium 5 Mg Tablet] 5 mg PO DAILY 02/17/12 Flomax 0.4 mg Cap.sr 0.4 mg PO DAILY 02/17/12 Lansoprazole [Prevacid] 30 mg PO DAILY 02/17/12 Prednisone [Sterapred] 5 mg PO DAILY 02/17/12 Zolpidem Tartrate [Ambien CR 12.5 mg Tablet] 12.5 mg PO QHS 02/17/12 Diphenhydramine HCl [Benadryl] 25 mg PO QHS 06/21/12 Oxycodone HCl/Acetaminophen [Percocet 5-325 mg Tablet] 1 - 2 tab PO Q4 PRN 06/22/12 Allergies/Adverse Reactions: Iodinated Contrast Media [IV Dye, Iodine Containing] Allergy (Severe, Verified 06/21/12 00:24) Generalized Itching Review of Systems Constitutional: PRESENT: chills, fatigue, fever(s), weakness. ABSENT: headache(s), weight loss Eyes: ABSENT: visual disturbances Ears: ABSENT: hearing changes Nose, Mouth, and Throat: PRESENT: sore throat. ABSENT: headache(s), vertigo Cardiovascular: PRESENT: dyspnea on exertion. ABSENT: chest pain, orthropnea, palpitations Respiratory: PRESENT: cough, dyspnea. ABSENT: hemoptysis, sputum Gastrointestinal: ABSENT: abdominal pain, diarrhea, nausea, vomiting Genitourinary: ABSENT: difficulty urinating, dysuria Integumentary: ABSENT: diaphoresis, rash Neurological: PRESENT: confusion, dizziness, weakness. ABSENT: abnormal movements, abnormal speech, focal weakness, syncope Psychiatric: ABSENT: homidical ideation, suicidal ideation Endocrine: ABSENT: cold intolerance, heat intolerance Allergic/Immunologic: PRESENT: seasonal rhinorrhea Physical Exam Vital Signs: Temp Pulse Resp BP Pulse Ox 98.2 F 83 21 H 107/91 H 93 09/16/20 11:30 09/16/20 10:08 09/16/20 13:01 09/16/20 13:01 09/16/20 13:01 Intake & Output 09/15/20 09/16/20 09/17/20 06:59 06:59 06:59 Weight 122.924 kg General appearance: PRESENT: no acute distress, cooperative, hard of hearing, obese - Elderly man appears younger than age Head exam: PRESENT: atraumatic, normocephalic Eye exam: PRESENT: EOMI. ABSENT: scleral icterus Ear exam: PRESENT: normal external ear exam. ABSENT: bleeding, drainage Mouth exam: PRESENT: dry mucosa, tongue midline Teeth exam: PRESENT: poor dentation Throat exam: ABSENT: post pharyngeal erythema Neck exam: PRESENT: full ROM. ABSENT: JVD, lymphadenopathy, tenderness Respiratory exam: PRESENT: clear to auscultation alma, decreased breath sounds - Decreased air movement bilaterally, rhonchi, wheezes, other - Nasal cannula in place. ABSENT: tachypnea Cardiovascular exam: PRESENT: other - Regular rate paced rhythm on telemetry rate in 70s. Pulses: PRESENT: normal radial pulses, normal dorsalis pedis pul GI/Abdominal exam: PRESENT: normal bowel sounds, soft. ABSENT: distended, firm, guarding, tenderness Rectal exam: PRESENT: deferred Extremities exam: PRESENT: full ROM. ABSENT: pedal edema, tenderness Musculoskeletal exam: PRESENT: full ROM. ABSENT: deformity, dislocation Neurological exam: PRESENT: alert, awake, oriented to person, oriented to place, oriented to time, oriented to situation, CN II-XII grossly intact. ABSENT: altered, motor sensory deficit Psychiatric exam: PRESENT: appropriate affect, normal mood Skin exam: PRESENT: dry, intact, other - Ecchymotic lesions noted bilateral upper extremities.. ABSENT: jaundice, rash Results Laboratory Results: 09/16/20 11:30 09/16/20 11:30 09/16/20 09/16/20 09/16/20 11:30 11:30 11:30 WBC 4.4 RBC 4.32 L Hgb 14.1 Hct 40.2 MCV 93 MCH 32.6 MCHC 35.0 RDW 13.8 Plt Count 86 L Seg Neutrophils % 82.9 H VBG pH 7.31 VBG pCO2 47.8 VBG HCO3 23.5 VBG Base Excess -3.1 Sodium 131.6 L Potassium 3.8 Chloride 103 Carbon Dioxide 23 Anion Gap 6 BUN 31 H Creatinine 2.72 H Est GFR ( Amer) 28 L Glucose 96 Lactic Acid Calcium 8.1 L Ferritin Total Bilirubin 0.9 AST 43 Alkaline Phosphatase 85 C-Reactive Protein Total Protein 6.6 Albumin 2.9 L 09/16/20 09/16/20 11:30 11:30 WBC RBC Hgb Hct MCV MCH MCHC RDW Plt Count Seg Neutrophils % VBG pH VBG pCO2 VBG HCO3 VBG Base Excess Sodium Potassium Chloride Carbon Dioxide Anion Gap BUN Creatinine Est GFR ( Amer) Glucose Lactic Acid 1.3 Calcium Ferritin 677.00 H Total Bilirubin AST Alkaline Phosphatase C-Reactive Protein 174.6 H Total Protein Albumin 09/16/20 11:30 Troponin I 0.036 Impressions: Chest X-Ray 09/16/20 10:13 IMPRESSION: FAINT AIRSPACE DISEASE CONCERNING FOR BILATERAL PNEUMONIA. Chest CT 09/16/20 10:37 IMPRESSION: DIFFUSE BILATERAL GROUND-GLASS INFILTRATES, CONSISTENT WITH COVID- 19 PNEUMONIA. Assessment and Plan - Diagnosis (1) Pneumonia due to COVID-19 virus Is this a current diagnosis for this admission?: Yes Plan: 1 week history of increasing shortness of breath on exertion. Oxygen saturation at home 85-88%. Covid + (09/16). Inflammatory markers elevated: d-dimer (1.67), ESR (39), CRP (174.6), LDH (348), Ferritin (677). CXR: Concerning for bilateral pneumonia. CT chest: Diffuse bilateral groundglass infiltrates, consistent with COVID-19 pneumonia. CTA not obtained; allergy to contrast. Consider VQ scan. CURB-65 >3; severe risk. BC pending. Sputum cx pending. Procalcitonin pending. O2 sat low 90s on 6L NC. Initiate Ivermectin x2, second dose tomorrow. Initiate solu-medrol 40mg x1, followed by 20mg BID x7 days with plan to switch to oral prednisone, taper over 6 days. Initiate vitamin supplements: zinc, ascorbic acid, vitamin d, melatonin. Initiate Famotidine. Initiate Robitussin as needed. Initiate Heparin at prophylactic dose; periodic D-dimer to evaluate for need for full dose anticoagulation. - Do not hold anticoagulation unless plt cnt <50 or active bleeding Initiate breathing treatments, flutter valve, incentive spirometry, early ambulation. Low suspicion for superimposed bacterial pneumonia, cnt monitor, consider abx if indicated. (2) Acute respiratory failure with hypoxia Is this a current diagnosis for this admission?: Yes Plan: Likely secondary to Covid pneumonia, treatment plan as above. May be multifocal in nature, given history of CHF, though clinically euvolemic. Provide supplemental oxygen as needed with goal to maintain saturations greater than 89%. (3) Generalized weakness Is this a current diagnosis for this admission?: Yes Plan: 2-hour history of intermittent generalized weakness with associated dizziness and confusion. Per sx's resolved shortly after pt placed on supplemental O2. Patient currently at his baseline. Likely 2/2 acute hypoxia, O2 sat 85-88% on room air with x1 week hx acute increase SOB, + COVID. Low suspicion for CVA/TIA; neurologically intact without focal deficit. - Denies unilateral weakness, slurred speech, facial droop, change in vision, ataxia. - Denies hx Afib, previous CVA/TIA/DVT/PE. - On daily ASA, clopidogrel, statin We will cnt ASA and statin. Additionally, anticoagulation as above. At this t jama symptoms have resolved in full. Given TIA dx would not change his current treatment plan I do not feel further work-up necessary at this time, will consider once patient stable in regards to respiratory status. (4) Elevated troponin Is this a current diagnosis for this admission?: Yes Plan: Without ischemic symptoms. Monitor closely for signs of ischemia. Troponin 0.036, 0.045, cnt to trend. EKG with paced rhythm. Likely secondary to demand mismatch. Cnt trend troponin. Cnt home ASA, statin. Echo pending. Place on telemetry. Repeat EKG in the morning. (5) Acute kidney injury superimposed on chronic kidney disease Is this a current diagnosis for this admission?: Yes Plan: BUN 31, Creatinine 2.72. History of renal cancer treated with nephrectomy. Without current CA. Previous labs reviewed, baseline BUN ~20, creatinine~1.90. Likely ALFONZO 2/2 dehydration, given low BP, hyponatremia and clinically appears volume depleted on exam. Bolus x1, gently IVF. Monitor on morning labs. (6) Congestive heart failure (CHF) Qualifiers: Heart failure type: unspecified Heart failure chronicity: unspecified Qualified Code(s): I50.9 - Heart failure, unspecified Is this a current diagnosis for this admission?: Yes Plan: Pt with hx CHF. Clinically appears to be volume depleted. BNP elevated 800. Chest imaging: without pleural effusion. We do not have an echo on file, will obtain. Her medications include Entresto and metoprolol. Currently blood pressure 90-low 100s, will hold medications until blood pressure stabilizes. (7) CAD (coronary artery disease) Is this a current diagnosis for this admission?: Yes Plan: Hx [place] 2016. Defibrillator/pacemaker at current. Followed by Dr. Fountain with [facility] cardiology with left heart cath in 2019, per patient and pt this was unremarkable. He is currently on aspirin, clopidogrel and atorvastatin. Without ischemic sxs. Troponin as above. EKG paced rhythm. Cnt home medications. Placed on telemetry. (8) HTN (hypertension) Qualifiers: Hypertension type: essential hypertension Qualified Code(s): I10 - Essen tial (primary) hypertension Is this a current diagnosis for this admission?: Yes Plan: Hx Htn. Current SBP 90-low 100s. Hold BP medications until BP has stabilized. (9) Osteoarthritis Is this a current diagnosis for this admission?: Yes Plan: Hx osteoarthritis tx'd with prednisone daily. (10) Obesity (BMI 35.0-39.9 without comorbidity) Is this a current diagnosis for this admission?: Yes Plan: BMI 35.8. Dietary and lifestyle adjustments and recommendations made. Patient agreeable and understanding to this. - Time Time Spent with patient: 35 or more minutes Medications reviewed and adjusted accordingly: Yes Anticipated Discharge Disposition: Home with Home Health Anticipated Discharge Timeframe: within 72 hours - Inpatient Certification Based on my medical assessment, after consideration of the patient's comorbidities, presenting symptoms, or acuity I expect that the services needed warrant INPATIENT care.: Yes I certify that my determination is in accordance with my understanding of Medicare's requirements for reasonable and necessary INPATIENT services [42 CFR 412.3e].: Yes Medical Necessity: Failure to Improve With Outpatient Therapy, Significant Comorbidiites Make Outpatient Treatment Too Risky, Need Close Monitoring Due to Risk of Patient Decompensation, Need for Nebulizer Therapy and Monitoring of Response, Risk of Complication if Not Cared For in Hospital Post Hospital Care: D/C or Transfer Summary
[2020-09-16] MEDS: ASCORBIC ACID 500 MG TABLET PO SCH (17:03)
[2020-09-16] MEDS: IPRATROPIUM/ALBUTEROL 0.5-2.5 MG/3 ML AMPUL NEB SCH (20:05)
[2020-09-16] MEDS: HEPARIN SOD (PORCINE) 5,000 UNIT/ML 1 ML VIAL SUBCUT SCH (21:15)
[2020-09-16] MEDS: FAMOTIDINE 20 MG TABLET PO SCH (21:16)
[2020-09-16] MEDS: ATORVASTATIN CALCIUM 80 MG TABLET PO SCH (21:16)
[2020-09-16] MEDS: MELATONIN 5 MG TABLET PO SCH (21:16)
[2020-09-16] MEDS ORDERED: DIAZEPAM 5 MG TABLET ONE (21:20)
[2020-09-16] MEDS: DIAZEPAM 5 MG TABLET PO SCH (21:59)
--- NOTE | 2020-09-16 22:38 | EKG REPORT ---
SEVERITY:- ABNORMAL ECG - A-V DUAL-PACED RHYTHM WITH SOME INHIBITION : Confirmed by: Lexa Medina MD 16-Sep-2020 22:37:51
[2020-09-17] MEDS: HEPARIN SOD (PORCINE) 5,000 UNIT/ML 1 ML VIAL SUBCUT SCH ×3 (05:16→21:12)
[2020-09-17 05:45] LABS: HEMATOCRIT 39.6 % (37.9-51.0); MEAN CORPUSCULAR HEMOGLOBIN 32.5 pg (27.0-33.4); MEAN CORPUSCULAR HGB CONC 35.5 g/dL (32.0-36.0); MEAN CORPUSCULAR VOLUME 92 fl (80-97); RED BLOOD COUNT 4.32 10^6/uL (4.35-5.55); RED CELL DISTRIBUTION WIDTH 13.8 % (11.5-14.0); WHITE BLOOD COUNT 4.4 10^3/uL (4.0-10.5)
[2020-09-17 06:20] LABS: ANION GAP 8 (5-19); BLOOD UREA NITROGEN 42 mg/dL (7-20); CARBON DIOXIDE 19 mmol/L (22-30); CHLORIDE 106 mmol/L (98-107); GLUCOSE 145 mg/dL (75-110); POTASSIUM 3.8 mmol/L (3.6-5.0)
[2020-09-17 07:14] LABS: PLATELET COUNT 98 10^3/uL (150-450)
[2020-09-17] MEDS ORDERED: INFLUENZA QUAD (6MOS+) 2020-21 VAC 0.5 ML SYR IM ONE (08:00)
[2020-09-17] MEDS: IPRATROPIUM/ALBUTEROL 0.5-2.5 MG/3 ML AMPUL NEB SCH ×2 (08:33→20:24)
[2020-09-17] MEDS: ASCORBIC ACID 500 MG TABLET PO SCH ×2 (09:59→17:51)
[2020-09-17] MEDS: ZINC SULFATE 220 MG CAPSULE PO SCH (09:59)
[2020-09-17] MEDS: FAMOTIDINE 20 MG TABLET PO SCH ×2 (09:59→21:11)
[2020-09-17] MEDS ORDERED: METHYLPREDNISOLONE INJ 40 MG/1 ML SDV IV ONE (10:00)
[2020-09-17] MEDS ORDERED: IVERMECTIN 3 MG TABLET PO ONE (10:00)
[2020-09-17] MEDS ORDERED: LEVOFLOXACIN 500 MG/D5W RTU 500 MG/100 ML RTUPB IV SCH (10:00)
[2020-09-17] MEDS: ASPIRIN 81 MG TABLET, ENT COATED PO SCH (10:00)
[2020-09-17] MEDS ORDERED: ENOXAPARIN SODIUM INJ 30 MG/0.3 ML DISP.SYRIN SUBCUT SCH (10:00)
[2020-09-17] MEDS: NORMAL SALINE 1000 ML 1,000 ML IV PRN ×2 (10:07→20:10)
[2020-09-17] MEDS: CHOLECALCIFEROL (D3) 1,000 UNIT (25 MCG) TABLET PO SCH (11:29)
[2020-09-17 13:18] LABS: APPEARANCE,URINE CLEAR; BILIRUBIN,URINE NEGATIVE (NEGATIVE); COLOR,URINE YELLOW; GLUCOSE, URINE NEGATIVE (NEGATIVE); KETONES,URINE NEGATIVE (NEGATIVE); PROTEIN,URINE 30 mg/dL (NEGATIVE); URINE SPECIFIC GRAVITY 1.016; UROBILINOGEN,URINE NEGATIVE mg/dL (<2.0)
[2020-09-17] MEDS ORDERED: CALCIUM GLUC IN NACL, ISO-OSM 1 GM/50 ML RTUPB IV ONE ×2 (13:33→16:30)
[2020-09-17] MEDS: FINASTERIDE 5 MG TABLET PO SCH (16:02)
[2020-09-17] MEDS ORDERED: TAMSULOSIN HCL 0.4 MG CAP.SR.24H PO SCH (18:00)
--- NOTE | 2020-09-17 20:06 | PDOC PROGRESS REPORT ---
Subjective Date:: 09/17/20 Subjective:: Patient seen on morning rounds. O2 sat 92% on 4 L nasal cannula. Paced rhythm at 64 beats per minutes on telemetry. He is resting comfortably in bed. Reports and shortness of breath. States that yesterday he was confused and had difficulty walking/staggered walking. States that he has been able to walk around his room without difficulty today. Denies confusion. He does note some difficulty urinating. He does have a history of BPH. Will initiate BPH medications. Discussed with nursing, no concerns at this time. Reason For Visit: COVID-19 PNEUMONIA, ACUTE RESPIRATORY DISTRESS, Physical Exam Vital Signs: Temp Pulse Resp BP Pulse Ox 97.1 F 66 18 115/75 93 09/17/20 03:53 09/17/20 03:53 09/17/20 03:53 09/17/20 03:53 09/17/20 03:53 Intake & Output 09/16/20 09/17/20 09/18/20 06:59 06:59 06:59 Intake Total 1300 Output Total 650 Balance 650 Weight 113.2 kg Additional comments: General appearance: PRESENT: no acute distress, cooperative, hard of hearing, obese - Elderly man appears younger than age Eye exam: PRESENT: EOMI. Mouth exam: PRESENT: dry mucosa, tongue midline Teeth exam: PRESENT: poor dentation Neck exam: PRESENT: full ROM. Respiratory exam: PRESENT: clear to auscultation alma, decreased breath sounds - Decreased air movement bilaterally, rhonchi, wheezes, other - Nasal cannula in place. ABSENT: tachypnea Cardiovascular exam: PRESENT: other - Regular rate paced rhythm on telemetry rate in 70s. GI/Abdominal exam: PRESENT: normal bowel sounds, soft. ABSENT: distended, firm, guarding, tenderness Extremities exam: PRESENT: full ROM. ABSENT: pedal edema, tenderness Neurological exam: PRESENT: alert, awake, oriented to person, oriented to place, oriented to time, oriented to situation, CN II-XII grossly intact. ABSENT: altered, motor sensory deficit Psychiatric exam: PRESENT: appropriate affect, normal mood Skin exam: PRESENT: dry, intact, other - Ecchymotic lesions noted bilateral upper extremities.. ABSENT: jaundice, rash Results Laboratory Results: 09/17/20 04:27 09/17/20 04:27 09/16/20 09/16/20 09/16/20 11:30 11:30 11:30 WBC 4.4 RBC 4.32 L Hgb 14.1 Hct 40.2 MCV 93 MCH 32.6 MCHC 35.0 RDW 13.8 Plt Count 86 L Seg Neutrophils % 82.9 H VBG pH 7.31 VBG pCO2 47.8 VBG HCO3 23.5 VBG Base Excess -3.1 Sodium 131.6 L Potassium 3.8 Chloride 103 Carbon Dioxide 23 Anion Gap 6 BUN 31 H Creatinine 2.72 H Est GFR ( Amer) 28 L Glucose 96 Lactic Acid Calcium 8.1 L Ferritin Total Bilirubin 0.9 AST 43 Alkaline Phosphatase 85 C-Reactive Protein Total Protein 6.6 Albumin 2.9 L 09/16/20 09/16/20 09/16/20 11:30 11:30 13:59 WBC RBC Hgb Hct MCV MCH MCHC RDW Plt Count Seg Neutrophils % VBG pH VBG pCO2 VBG HCO3 VBG Base Excess Sodium Potassium Chloride Carbon Dioxide Anion Gap BUN Creatinine Est GFR ( Amer) Glucose Lactic Acid 1.3 1.4 Calcium Ferritin 677.00 H Total Bilirubin AST Alkaline Phosphatase C-Reactive Protein 174.6 H Total Protein Albumin 09/16/20 09/17/20 09/17/20 17:00 04:27 04:27 WBC 4.4 RBC 4.32 L Hgb 14.0 Hct 39.6 MCV 92 MCH 32.5 MCHC 35.5 RDW 13.8 Plt Count 98 L Seg Neutrophils % VBG pH VBG pCO2 VBG HCO3 VBG Base Excess Sodium 133.2 L Potassium 3.8 Chloride 106 Carbon Dioxide 19 L Anion Gap 8 BUN 42 H Creatinine 2.55 H Est GFR ( Amer) 30 L Glucose 145 H Lactic Acid 1.1 Calcium 8.0 L Ferritin Total Bilirubin AST Alkaline Phosphatase C-Reactive Protein Total Protein Albumin 09/16/20 09/16/20 09/16/20 11:30 13:59 13:59 Troponin I 0.036 0.045 NT-Pro-B Natriuret Pep 861 H 09/16/20 17:00 Troponin I 0.042 NT-Pro-B Natriuret Pep Impressions: Chest X-Ray 09/16/20 10:13 IMPRESSION: FAINT AIRSPACE DISEASE CONCERNING FOR BILATERAL PNEUMONIA. Chest CT 09/16/20 10:37 IMPRESSION: DIFFUSE BILATERAL GROUND-GLASS INFILTRATES, CONSISTENT WITH COVID- 19 PNEUMONIA. Assessment and Plan - Diagnosis (1) Pneumonia due to COVID-19 virus Is this a current diagnosis for this admission?: Yes (2) Acute respiratory failure with hypoxia Is this a current diagnosis for this admission?: Yes (3) Generalized weakness Is this a current diagnosis for this admission?: Yes (4) Elevated troponin Is this a current diagnosis for this admission?: Yes (5) Acute kidney injury superimposed on chronic kidney disease Is this a current diagnosis for this admission?: Yes (6) Congestive heart failure (CHF) Qualifiers: Heart failure type: unspecified Heart failure chronicity: unspecified Qualified Code(s): I50.9 - Heart failure, unspecified Is this a current diagnosis for this admission?: Yes (7) CAD (coronary artery disease) Is this a current diagnosis for this admission?: Yes (8) HTN (hypertension) Qualifiers: Hypertension type: essential hypertension Qualified Code(s): I10 - Essential (primary) hypertension Is this a current diagnosis for this admission?: Yes (9) Osteoarthritis Is this a current diagnosis for this admission?: Yes (10) Obesity (BMI 35.0-39.9 without comorbidity) Is this a current diagnosis for this admission?: Yes - Plan Summary Summary: Pneumonia due to COVID-19 virus / Acute respiratory failure with hypoxia: 92% on 4L NC. Oxygen saturation at home 85-88%. Covid + (09/16). Inflammatory markers elevated: d-dimer (1.67), ESR (39), CRP (174.6), LDH (348), Ferritin (677). CXR: Concerning for bilateral pneumonia. CT chest: Diffuse bilateral groundglass infiltrates, consistent with COVID-19 pneumonia. CTA not obtained; allergy to contrast. Consider VQ scan. CURB-65 >3; severe risk. BC NGTD. Sputum cx pending; have not obtained, producing minimal sputum at this time. Procalcitonin pending. O2 sat low 90s on 4L NC. Completed Ivermectin x2, second dose tomorrow. Cnt solu-medrol 40mg x1, followed by 20mg BID x7 days with plan to switch to oral prednisone, taper over 6 days. Cnt vitamin supplements: zinc, ascorbic acid, vitamin d, melatonin. Cnt Famotidine. Cnt Robitussin as needed. Cnt Heparin at prophylactic dose; periodic D-dimer to evaluate for need for full dose anticoagulation. - Do not hold anticoagulation unless plt cnt <50 or active bleeding Cnt breathing treatments, flutter valve, incentive spirometry, early ambulation. Generalized weakness: Resolved, patient at his baseline. Likely secondary to hypoxia. 2-hour history of intermittent generalized weakness with associated dizziness and confusion. Per sx's resolved shortly after pt placed on supplemental O2. Patient currently at his baseline. Likely 2/2 acute hypoxia, O2 sat 85-88% on room air with x1 week hx acute increase SOB, + COVID. Low suspicion for CVA/TIA; neurologically intact without focal deficit. - Denies unilateral weakness, slurred speech, facial droop, change in vision, ataxia. - Denies hx Afib, previous CVA/TIA/DVT/PE. - On daily ASA, clopidogrel, statin We will cnt ASA and statin. Additionally, anticoagulation as above. At this time symptoms have resolved in full. Given TIA dx would not change his current treatment plan I do not feel further work-up necessary at this time, will consider once patient stable in regards to respiratory status. Elevated troponin: Peak, trended down. Without ischemic symptoms. Monitor closely for signs of ischemia. Troponin 0.036, 0.045, 0.[address] changes. Tele paced rhythm. Likely secondary to demand mismatch. Cnt home ASA, statin. Acute kidney injury superimposed on chronic kidney disease: Elevated BUN/Cr from baseline, initiate gentle IVF. History of renal cancer treated with nephrectomy. Without current CA. Previous labs reviewed, baseline BUN ~20, creatinine~1.90. Likely ALFONZO 2/2 dehydration, given low BP, hyponatremia and clinically appears volume depleted on exam. Monitor on morning labs. Congestive heart failure (CHF): Pt reports hx CHF. Clinically appears to be volume depleted. BNP elevated 800. Chest imaging: without pleural effusion. We do not have a echo on file. CAD (coronary artery disease): Hx [place] 2017. Defibrillator/pacemaker at current. Followed by Dr. Fountain with [facility] cardiology with left heart cath in 2019, per patient and pt this was unremarkable. He is currently on aspirin, clopidogrel and atorvastatin. Without ischemic sxs. Troponin as above. EKG paced rhythm. Cnt home medications. Placed on telemetry. HTN (hypertension): Hx Htn. Current SBP 90-low 100s. Hold BP medications until BP has stabilized. Osteoarthritis: Hx osteoarthritis tx'd with prednisone daily. Obesity (BMI 35.0-39.9 without comorbidity): BMI 35.8. Dietary and lifestyle adjustments and recommendations made. Patient agreeable and understanding to this. - Time Time Spent with patient: 25-34 minutes Medications reviewed and adjusted accordingly: Yes Anticipated Discharge Disposition: Home, Self Care Anticipated Discharge Timeframe: within 72 hours
[2020-09-17] MEDS: MELATONIN 5 MG TABLET PO SCH (21:11)
[2020-09-17] MEDS: DIAZEPAM 5 MG TABLET PO SCH (21:11)
[2020-09-17] MEDS: ATORVASTATIN CALCIUM 80 MG TABLET PO SCH (21:11)
[2020-09-18] MEDS: NORMAL SALINE 1000 ML 1,000 ML IV PRN (05:16)
[2020-09-18] MEDS: HEPARIN SOD (PORCINE) 5,000 UNIT/ML 1 ML VIAL SUBCUT SCH (05:16)
[2020-09-18 06:05] LABS: HEMATOCRIT 37.9 % (37.9-51.0); HEMOGLOBIN 13.3 g/dL (13.5-17.0); MEAN CORPUSCULAR HEMOGLOBIN 32.6 pg (27.0-33.4); MEAN CORPUSCULAR HGB CONC 35.1 g/dL (32.0-36.0); MEAN CORPUSCULAR VOLUME 93 fl (80-97); PLATELET COUNT 121 10^3/uL (150-450); RED BLOOD COUNT 4.08 10^6/uL (4.35-5.55); RED CELL DISTRIBUTION WIDTH 13.8 % (11.5-14.0)
[2020-09-18 06:10] LABS: WHITE BLOOD COUNT 10.2 10^3/uL (4.0-10.5)
[2020-09-18 06:28] LABS: ANION GAP 9 (5-19); BLOOD UREA NITROGEN 31 mg/dL (7-20); CALCIUM 7.8 mg/dL (8.4-10.2); CARBON DIOXIDE 19 mmol/L (22-30); CHLORIDE 108 mmol/L (98-107); GLUCOSE 117 mg/dL (75-110); POTASSIUM 3.6 mmol/L (3.6-5.0)
[2020-09-18] MEDS: IPRATROPIUM/ALBUTEROL 0.5-2.5 MG/3 ML AMPUL NEB SCH (07:55)
[2020-09-18] MEDS: CALCIUM GLUC IN NACL, ISO-OSM 1 GM/50 ML RTUPB IV SCH ×2 (08:27→09:59)
[2020-09-18] MEDS: FAMOTIDINE 20 MG TABLET PO SCH (09:59)
[2020-09-18] MEDS: ZINC SULFATE 220 MG CAPSULE PO SCH (09:59)
[2020-09-18] MEDS: ASPIRIN 81 MG TABLET, ENT COATED PO SCH (09:59)
[2020-09-18] MEDS: FINASTERIDE 5 MG TABLET PO SCH (09:59)
[2020-09-18] MEDS: ASCORBIC ACID 500 MG TABLET PO SCH (09:59)
[2020-09-18] MEDS ORDERED: METHYLPREDNISOLONE INJ 40 MG/1 ML SDV IV SCH (10:00)
[2020-09-18] MEDS: CHOLECALCIFEROL (D3) 1,000 UNIT (25 MCG) TABLET PO SCH (10:00)
--- NOTE | 2020-09-18 15:49 | PDOC DISCHARGE SUMMARY ---
Impression - Admit/DC Date/PCP Admission Date/Primary Care Provider: 09/16/20 13:14 TIERNEY WILDE PA-C Discharge Date: 09/18/20 - Discharge Diagnosis (1) Pneumonia due to COVID-19 virus Is this a current diagnosis for this admission?: Yes (2) Acute respiratory failure with hypoxia Is this a current diagnosis for this admission?: Yes (3) Generalized weakness Is this a current diagnosis for this admission?: Yes (4) Elevated troponin Is this a current diagnosis for this admission?: Yes (5) Acute kidney injury superimposed on chronic kidney disease Is this a current diagnosis for this admission?: Yes (6) Congestive heart failure (CHF) Is this a current diagnosis for this admission?: Yes (7) CAD (coronary artery disease) Is this a current diagnosis for this admission?: Yes (8) HTN (hypertension) Is this a current diagnosis for this admission?: Yes (9) Osteoarthritis Is this a current diagnosis for this admission?: Yes (10) Obesity (BMI 35.0-39.9 without comorbidity) Is this a current diagnosis for this admission?: Yes - Additional Information Resuscitation Status: Full Code Discharge Diet: As Tolerated Discharge Activity: Activity As Tolerated, Slowly Increase Activity Referrals: TIERNEY WILDE PA-C [Primary Care Provider] - Follow up as needed Prescriptions: Prednisone [Deltasone 20 mg Tablet] 20 mg PO DAILY 5 Days #5 tablet Home Medications: Diazepam [Valium 5 mg Tablet] 5 mg PO DAILYP PRN 02/17/12 Prednisone [Sterapred] 10 mg PO DAILY 02/17/12 Allopurinol [Zyloprim 100 mg Tablet] 100 mg PO BID 09/16/20 Clopidogrel Bisulfate [Plavix 75 mg Tablet] 75 mg PO DAILY 09/16/20 Prednisone [Deltasone 10 mg Tablet] 10 mg PO DAILY 09/16/20 Rosuvastatin Calcium [Crestor] 20 mg PO DAILY 09/16/20 Ascorbic Acid [Vitamin C 500 mg Tablet] 500 mg PO BID tablet 09/18/20 Cholecalciferol (Vitamin D3) [Vitamin D3 1000 Unit Tablet] 2,000 unit PO DAILY tablet 09/18/20 Famotidine [Pepcid 20 mg Tablet] 40 mg PO Q12 tablet 09/18/20 Melatonin [Melatonin 5 mg Tablet] 5 mg PO QHS tablet 09/18/20 Prednisone [Deltasone 20 mg Tablet] 20 mg PO DAILY 5 Days #5 tablet 09/18/20 Zinc Sulfate [Zinc-220 Capsule] 220 mg PO DAILY capsule 09/18/20 History of Present Illiness History of Present Illness: SHANDRA FIORE is a 74 year old male with PMHx CAD, defibrillator/pacemaker, HTN, CHF, renal CA (nephrectomy), osteoarthritis, gout, who is Covid+, per labs today, who presented to the ED today and is accompanied by his . Patient reports 1 week history of generalized body aches, fatigue, sore throat, chills, intermittent fever, and progressively worsening shortness of breath. Does have a long standing history of shortness of breath, followed by pulm, but states over the past week his shortness of breath on exertion has increased to the point where he cannot even get up out of bed without "puffing". became concerned this morning as patient demonstrated generalized weakness, "like jello", dizziness and confusion. This lasted ~2-2.5 hours in duration. He is now at his baseline. Per O2 sat at home between 85-88% on room air. EMS was called in regards to his change in mental status. Evaluation in emergency department patient was found to be febrile (103F, gave Tylenol, resolved), SBP ranging 90s-low 100s, O2 sat low 90s on 6L NC. Covid + with elevation in ESR, d-dimer (1.67), ferrittin, LDH, and CRP. CBC unremarkable. On chemistries he is hyponatremic with elevated BUN/Creatinine (more so than baseline). Lactic acid 1.3. Troponin 0.036. EKG with paced rhythm. CXR concerning for bilateral pneumonia. CT chest diffuse ground glass infiltrates consistent with Covid-19. He received single dose ivermectin, Decadron, cholecalciferol vancomycin, and Zosyn. Hospitalist team was contacted for further evaluation and treatment. Hospital Course Hospital Course: Pneumonia due to COVID-19 virus / Acute respiratory failure with hypoxia: O2 sat >92% on room air. Patient is stable and ready for discharge. Oxygen saturation at home 85-88%. Covid + (09/16). Quarantine until 09/26/2020 Elevated inflammatory markers: d-dimer, ESR, CRP, LDH, Ferritin. CXR: Concerning for bilateral pneumonia. CT chest: Diffuse bilateral groundglass infiltrates, consistent with COVID-19 pneumonia. CTA not obtained; allergy to contrast. Consider VQ scan. BC NGTD. Sputum cx pending; have not obtained, producing minimal sputum at this time. Completed Ivermectin x2. Cnt solu-medrol 40mg x1, Solumedrol 20mg. Dx with Rx Prednisone 20mg daily x5 days, then resume home dose prednisone. Cnt vitamin supplements: zinc, ascorbic acid, vitamin d, melatonin outpatient setting. Cnt Famotidine outpatient setting Cnt Robitussin as needed outpatient setting Cnt Heparin at prophylactic dose; periodic D-dimer to evaluate for need for full dose anticoagulation. - Do not hold anticoagulation unless plt cnt <50 or active bleeding Cnt flutter valve, incentive spirometry outpatient setting Generalized weakness: Resolved, patient at his baseline. Likely secondary to hypoxia. 2-hour history of intermittent generalized weakness with associated dizziness and confusion. Per sx's resolved shortly after pt placed on supplemental O2. Patient currently at his baseline. Likely 2/2 acute hypoxia, O2 sat 85-88% on room air with x1 week hx acute increase SOB, + COVID. Low suspicion for CVA/TIA; neurologically intact without focal deficit. - Denies unilateral weakness, slurred speech, facial droop, change in vision, ataxia. - Denies hx Afib, previous CVA/TIA/DVT/PE. - On daily ASA, clopidogrel, statin We will cnt ASA and statin. Additionally, anticoagulation as above. At this time symptoms have resolved in full. Given TIA dx would not change his current treatment plan I do not feel further work-up necessary at this time, will consider once patient stable in regards to respiratory status. Elevated troponin: Peak, trended down. Without ischemic symptoms. Monitor closely for signs of ischemia. Troponin 0.036, 0.045, 0.[address] changes. Tele paced rhythm. Likely secondary to demand mismatch. Cnt home ASA, statin. Acute kidney injury superimposed on chronic kidney disease: BUN and creatinine at baseline at this time. Encouraged continued increased fluid intake History of renal cancer treated with nephrectomy. Without current CA. Previous labs reviewed, baseline BUN ~20, creatinine~1.90. Likely ALFONZO 2/2 dehydration, given low BP, hyponatremia and clinically appears volume depleted on exam. Monitor on morning labs. Congestive heart failure (CHF): Pt reports hx CHF. Not currently in exacerbation. Clinically appears to be volume depleted. BNP elevated 800. Chest imaging: without pleural effusion. CAD (coronary artery disease): Hx CA 2017. Defibrillator/pacemaker at current. Followed by Dr. Fountain with on license of [facility] cardiology with left heart cath in 2019, per patient and pt this was unremarkable. He is currently on aspirin, clopidogrel and atorvastatin. Without ischemic sxs. Troponin as above. EKG paced rhythm. Cnt home medications. HTN (hypertension): Hx Htn. Current SBP 90-low 100s. Stabilized though continued to be lowe 100/50s, recommend taking blood pressure daily. Hold Entresto at this time. With close follow-up with primary care provider within 2 weeks of discharge from the hospital. Osteoarthritis: Hx osteoarthritis tx'd with prednisone daily. Will resume home dose prednisone after completing 5 days 20 mg daily. Obesity (BMI 35.0-39.9 without comorbidity): BMI 35.8. Dietary and lifestyle adjustments and recommendations made. Patient agreeable and understanding to this. Physical Exam Vital Signs: Temp Pulse Resp BP Pulse Ox 98.2 F 81 18 107/56 L 91 L 09/18/20 15:11 09/18/20 15:11 09/18/20 15:11 09/18/20 15:11 09/18/20 15:11 Intake & Output 09/17/20 09/18/20 09/19/20 06:59 06:59 06:59 Intake Total 1300 2907 Output Total 650 2100 400 Balance 650 807 -400 Weight 113.2 kg 113.6 kg Additional comments: General appearance: PRESENT: no acute distress, cooperative, hard of hearing, obese Eye exam: PRESENT: EOMI. Teeth exam: PRESENT: poor dentation Neck exam: PRESENT: full ROM. Respiratory exam: PRESENT: clear to auscultation alma, diffuse rhonchi. ABSENT: Wheezing tachypnea Cardiovascular exam: PRESENT: Regular rate. other - paced rhythm on telemetry rate in 70s. GI/Abdominal exam: PRESENT: normal bowel sounds, soft. ABSENT: distended, firm, guarding, tenderness Extremities exam: PRESENT: full ROM. ABSENT: pedal edema, tenderness Neurological exam: PRESENT: alert, awake, oriented to person, oriented to place, oriented to time, oriented to situation, CN II-XII grossly intact. ABSENT: altered, motor sensory deficit Psychiatric exam: PRESENT: appropriate affect, normal mood Skin exam: PRESENT: dry, intact, other - Ecchymotic lesions noted bilateral upper extremities.. ABSENT: jaundice, rash Results Laboratory Results: WBC 10.2 10^3/uL (4.0-10.5) D 09/18/20 05:18 RBC 4.08 10^6/uL (4.35-5.55) L 09/18/20 05:18 Hgb 13.3 g/dL (13.5-17.0) L 09/18/20 05:18 Hct 37.9 % (37.9-51.0) 09/18/20 05:18 MCV 93 fl (80-97) 09/18/20 05:18 MCH 32.6 pg (27.0-33.4) 09/18/20 05:18 MCHC 35.1 g/dL (32.0-36.0) 09/18/20 05:18 RDW 13.8 % (11.5-14.0) 09/18/20 05:18 Plt Count 121 10^3/uL (150-450) L 09/18/20 05:18 Lymph % (Auto) 10.6 % (13-45) L 09/16/20 11:30 Moca % (Auto) 5.8 % (3-13) 09/16/20 11:30 Eos % (Auto) 0.2 % (0-6) 09/16/20 11:30 Baso % (Auto) 0.5 % (0-2) 09/16/20 11:30 Absolute Neuts (auto) 3.6 10^3/uL (1.7-8.2) 09/16/20 11:30 Absolute Lymphs (auto) 0.5 10^3/uL (0.5-4.7) 09/16/20 11:30 Absolute Monos (auto) 0.3 10^3/uL (0.1-1.4) 09/16/20 11:30 Absolute Eos (auto) 0.0 10^3/uL (0.0-0.6) 09/16/20 11:30 Absolute Basos (auto) 0.0 10^3/uL (0.0-0.2) 09/16/20 11:30 Seg Neutrophils % 82.9 % (42-78) H 09/16/20 11:30 ESR 39 mm/hr (0-20) H 09/16/20 11:30 PT 13.8 SEC (11.4-15.4) 09/16/20 11:30 INR 1.04 09/16/20 11:30 D-Dimer 0.77 ug/mL (0.00-0.50) H 09/18/20 05:18 VBG pH 7.31 (7.30-7.42) 09/16/20 11:30 VBG pCO2 47.8 mmHg (35-63) 09/16/20 11:30 VBG HCO3 23.5 mmol/L (20-32) 09/16/20 11:30 VBG Base Excess -3.1 mmol/L 09/16/20 11:30 Sodium 136.0 mmol/L (137-145) L 09/18/20 05:18 Potassium 3.6 mmol/L (3.6-5.0) 09/18/20 05:18 Chloride 108 mmol/L (98-107) H 09/18/20 05:18 Carbon Dioxide 19 mmol/L (22-30) L 09/18/20 05:18 Anion Gap 9 (5-19) 09/18/20 05:18 BUN 31 mg/dL (7-20) H 09/18/20 05:18 Creatinine 2.04 mg/dL (0.52-1.25) H 09/18/20 05:18 Est GFR ( Amer) 39 (>60) L 09/18/20 05:18 Est GFR (MDRD) Non-Af 32 (>60) L 09/18/20 05:18 Glucose 117 mg/dL (75-110) H 09/18/20 05:18 Lactic Acid 1.1 mmol/L (0.7-2.1) 09/16/20 17:00 Calcium 7.8 mg/dL (8.4-10.2) L 09/18/20 05:18 Ionized Calcium Ke[place] 1.16 mmol/L (1.14-1.30) 09/17/20 09:09 Ferritin 677.00 ng/mL (17.9-464.0) H 09/16/20 11:30 Total Bilirubin 0.9 mg/dL (0.2-1.3) 09/16/20 11:30 Direct Bilirubin 0.5 mg/dL (0.0-0.4) H 09/16/20 11:30 Neonat Total Bilirubin Not Reportable 09/16/20 11:30 Neonat Direct Bilirubin Not Reportable 09/16/20 11:30 Neonat Indirect Bili Not Reportable 09/16/20 11:30 AST 43 U/L (17-59) 09/16/20 11:30 ALT 17 U/L (<50) 09/16/20 11:30 Alkaline Phosphatase 85 U/L (38-126) 09/16/20 11:30 Lactate Dehydrogenase 348 U/L (120-246) H 09/16/20 11:30 Troponin I 0.042 ng/mL 09/16/20 17:00 C-Reactive Protein 174.6 mg/L (<10.0) H 09/16/20 11:30 NT-Pro-B Natriuret Pep 861 pg/mL (<125) H 09/16/20 13:59 Total Protein 6.6 g/dL (6.3-8.2) 09/16/20 11:30 Albumin 2.9 g/dL (3.5-5.0) L 09/16/20 11:30 Procalcitonin 2.53 ng/mL (0.00-0.08) H 09/16/20 17:00 Urine Color YELLOW 09/17/20 12:55 Urine Appearance CLEAR 09/17/20 12:55 Urine pH 5.0 (5.0-9.0) 09/17/20 12:55 Ur Specific [place] 1.016 09/17/20 12:55 Urine Protein 30 mg/dL (NEGATIVE) H 09/17/20 12:55 Urine Glucose (UA) NEGATIVE mg/dL (NEGATIVE) 09/17/20 12:55 Urine Ketones NEGATIVE mg/dL (NEGATIVE) 09/17/20 12:55 Urine Blood SMALL (NEGATIVE) H 09/17/20 12:55 Urine Nitrite (Reflex) NEGATIVE (NEGATIVE) 09/17/20 12:55 Urine Bilirubin NEGATIVE (NEGATIVE) 09/17/20 12:55 Urine Urobilinogen NEGATIVE mg/dL (<2.0) 09/17/20 12:55 Leukocyte Esterase Rfl NEGATIVE (NEGATIVE) 09/17/20 12:55 Urine RBC (Auto) 1 /HPF 09/17/20 12:55 Urine Bacteria (Auto) TRACE /HPF 09/17/20 12:55 Urine WBC (Reflex) 1 /HPF 09/17/20 12:55 Squamous Epi Cells Auto <1 /HPF 09/17/20 12:55 Urine Mucus (Auto) RARE /LPF 09/17/20 12:55 Urine Ascorbic Acid NEGATIVE (NEGATIVE) 09/17/20 12:55 [place] Human Metapneumo PCR NOT DETECTED (NOT DETECT) 09/16/20 12:02 Adenovirus (PCR) NOT DETECTED (NOT DETECT) 09/16/20 12:02 B. pertussis DNA (PCR) NOT DETECTED (NOT DETECT) 09/16/20 12:02 B.parapertussis DNA PCR NOT DETECTED (NOT DETECT) 09/16/20 12:02 C. pneumoniae DNA (PCR) NOT DETECTED (NOT DETECT) 09/16/20 12:02 Coronavirus OC43 (PCR) NOT DETECTED (NOT DETECT) 09/16/20 12:02 Coronavirus HKU1 (PCR) NOT DETECTED (NOT DETECT) 09/16/20 12:02 Coronavirus 229E (PCR) NOT DETECTED (NOT DETECT) 09/16/20 12:02 Coronavirus NL63 (PCR) NOT DETECTED (NOT DETECT) 09/16/20 12:02 Influenza A (H1) PCR NOT DETECTED (NOT DETECT) 09/16/20 12:02 Influ A (H1N1/09) PCR NOT DETECTED (NOT DETECT) 09/16/20 12:02 Influenza A (H3) PCR NOT DETECTED (NOT DETECT) 09/16/20 12:02 Influenza Type A (PCR) NOT DETECTED (NOT DETECT) 09/16/20 12:02 Influenza Type B (PCR) NOT DETECTED (NOT DETECT) 09/16/20 12:02 M. pneumoniae (PCR) NOT DETECTED (NOT DETECT) 09/16/20 12:02 Parainfluenza 1 (PCR) NOT DETECTED (NOT DETECT) 09/16/20 12:02 Parainfluenza 2 (PCR) NOT DETECTED (NOT DETECT) 09/16/20 12:02 Parainfluenza 3 (PCR) NOT DETECTED (NOT DETECT) 09/16/20 12:02 Parainfluenza 4 (PCR) NOT DETECTED (NOT DETECT) 09/16/20 12:02 RSV (PCR) NOT DETECTED (NOT DETECT) 09/16/20 12:02 Entero/Rhino (PCR) NOT DETECTED (NOT DETECT) 09/16/20 12:02 SARS-CoV-2 (PCR) DETECTED (NOT DETECT) H 09/16/20 12:02 09/16/20 09/16/20 09/16/20 11:30 13:59 13:59 Troponin I 0.036 0.045 NT-Pro-B Natriuret Pep 861 H 09/16/20 17:00 Troponin I 0.042 NT-Pro-B Natriuret Pep Impressions: Chest X-Ray 09/16/20 10:13 IMPRESSION: FAINT AIRSPACE DISEASE CONCERNING FOR BILATERAL PNEUMONIA. Chest CT 09/16/20 10:37 IMPRESSION: DIFFUSE BILATERAL GROUND-GLASS INFILTRATES, CONSISTENT WITH COVID- 19 PNEUMONIA. Plan Time Spent: Greater than 30 Minutes Stroke Is this a Stroke Patient?: No Acute Heart Failure Is this a Heart Failure Patient?: No
[2020-09-18 16:08] VITALS: BP 153/112
--- OUTSIDE RECORDS SUMMARY | 2020-09-19 10:17 | XMS REPORT ---
:1945 [facility] [address] [place] [address] Care Team Providers Name Role Phone ROS, I Primary Care Physician Unavailable Shanae DRISCOLL Attending Clinician Unavailable MAITE NOLASCO Attending Clinician Unavailable Tres HENDRICKSON Attending Clinician Unavailable Arturo SHI Attending Clinician Unavailable Allergies, Adverse Reactions, Alerts Allergy Name Allergy Status Severity Reaction(s) Onset Inactive Treat ing Comments Type Date Date Clinician IODINE AND Miscellaneo Active U IODIDE us allergy 03-27 CONTAINING 00:00: PRODUCTS 00 DYE Drug Active U allergy 03-27 00:00: 00 Atorvastatin Propensity Active Moderate Other (See 2016-08 Joint to adverse Comments) 09-22 sam n reactions 00:00: 00 Isosorbide Propensity Active Moderate Other (See 2016-08 Chest Mononitrate to adverse Comments) 09-22 pain reactions 00:00: 00 Iodinated Propensity Active Moderate Other (See Contrast- to adverse Comments) 05-20 Oral And Iv reactions 00:00: Dye 00 IV Dye, Drug Active Iodine allergy 4-21 Containing 00:00: Contrast 00 Media Iodinated Allergy to Active Mild to Itching Contrast- substance moderate Oral and Iv Dye Iodine and Allergy to Active Mild to Rash Iodide substance moderate Containing Products Medications Ordered Filled Start Stop Current Ordering Indication Dosage Frequency Signature Comments Components Medication Medication Date Date Medication? Clinician (SIG) Name Name prednisone 2017-08 No 1 Q1D prednisone 10 mg 09-22 10 mg tablet Take 00:00: tablet 1 tablet 00 Take 1 every day tablet by oral every day route. by oral route. 1 tablet, 2 2017-08 2018- No 1 1 tablet, times per 1-14 11-24 2 times day, for 10 09:54: 00:00 per day, days 40 :00 for 10 days zolpidem Yes 12.5MG 12.5 mg. 12.5 m g. (AMBIEN CR) 6-04 12.5 MG CR 13:28: tablet 36 allopurinol Yes 100MG 100 mg. 100 m g. (ZYLOPRIM) 6-04 100 MG 13:28: tablet 35 diazePAM Yes 10MG 10 mg. 10 mg. (VALIUM) 10 6-04 MG tablet 13:28: 35 diphenhydrA Yes 25MG 25 mg. 25 mg. MINE 604 (BENADRYL) 13:28: 25 mg 35 capsule loperamide Yes 2MG 2 mg. 2 mg. (IMODIUM) 2 6-04 mg capsule 13:28: 35 predniSONE Yes 10MG 10 mg. 10 mg. (DELTASONE) 6-04 10 MG 13:28: tablet 35 amLODIPine Yes Amlodipine (NORVASC) 5 24 5 Mg MG tablet 00:00: Tablet 00 clopidogrel 2017- No 75MG 75 mg. 75 mg. (PLAVIX) 75 01-15 06-23 mg tablet 00:00: 23:59 00 :00 nitroglycer 2017- No .4MG 0.4 mg. 0.4 m g. in 01-15 (NITROSTAT) 00:00: 23:59 0.4 MG SL 00 :00 tablet diclofenac Yes APPLY ONE APPL Y ONE sodium 4-19 GRAM TO GRAM TO (VOLTAREN) 00:00: LEFT TO LEFT T O 1 % gel 00 SHOULDER SHOULDER EVERY DAY EVERY DAY NEEDED NEEDED pantoprazol 2016-08- No 40MG 40 mg. 40 mg. e 08-25 (PROTONIX) 00:00: 23:59 40 MG 00 :00 tablet aspirin Yes 81MG 81 mg. 81 mg. (ECOTRIN) 9-30 81 MG 00:00: tablet 00 1 tablet, 3 2015-08- No 1 1 tablet, times per 2-20 -03 3 times day, for 14 14:37: 00:00 per day, days 21 :00 for 14 days 1 tablet, 2 2015-08- No 1 1 tablet, times per 2-20 12-27 2 times day, for 7 14:37: 00:00 per day, days 21 :00 for 7 days , for 30 2015-08 Yes , for 00:00: 00 , for 2015-08 Yes , for 00:00: 00 , for 2015-08 Yes , for 00:00: 00 , for 2015-08 Yes , for 00:00: 00 allopurinol No 1 BID allopurino 100 mg l 100 mg tablet Take tablet 1 tablet Take 1 twice a day tablet by oral twice a route. day by oral route. amlodipine No 1 Q1D amlodipine 5 mg tablet 5 mg Take 1 tablet tablet Take 1 every day tablet by oral every day route. by oral route. aspirin 81 No 1 Q1D aspirin 81 mg mg tablet,jane tablet,del yed release ayed Take 1 release tablet Take 1 every day tablet by oral every day route. by oral route. clopidogrel No 1 Q1D clopidogre 75 mg l 75 mg tablet Take tablet 1 tablet Take 1 every day tablet by oral every day route. by oral route. diazepam 10 No 1 Q1D diazepam mg tablet 10 mg Take 1 tablet tablet Take 1 every day tablet by oral every day route. by oral route. metoprolol No 1 Q1D metoprolol succinate succinate ER 50 mg ER 50 mg tablet,exte tablet,ext nded ended release 24 release 24 hr Take 1 hr Take 1 tablet tablet every day every day by oral by oral route. route. pantoprazol No 1 Q1D pantoprazo e 40 mg le 40 mg tablet,jane tablet,del yed release ayed Take 1 release tablet Take 1 every day tablet by oral every day route. by oral route. tizanidine No tizanidine 4 mg tablet 4 mg TAKE ONE tablet TABLET BY TAKE ONE MOUTH THREE TABLET BY TIMES DAILY MOUTH THREE TIMES DAILY zolpidem ER No 1 Q1D zolpidem 12.5 mg ER 12.5 mg tablet,exte tablet,ext nded ended release,mul release,mu tiphase ltiphase Take 1 Take 1 tablet tablet every day every day by oral by oral route. route. prednisone No prednisone 20 mg 20 mg tablet tablet ciprofloxac No ciprofloxa in 0.3 % syeda 0.3 % eye drops eye drops furosemide No furosemide 20 mg 20 mg tablet tablet furosemide No furosemide 40 mg 40 mg tablet tablet hydrocodone No hydrocodon 5 e 5 mg-acetamin mg-acetami ophen 325 nophen 325 mg tablet mg tablet prednisone No prednisone 10 mg 10 mg tablet Take tablet 1 tablet Take 1 every day tablet by oral every day route. by oral route. 1 tablet, 1 No 1 1 tablet, time per - 1 time per day, for 30 00:00 day, for days :00 30 days 1 tablet, 1 2017- No 1 1 tablet, time per 07-08 1 time per day, for 00:00 day, for days :00 30 days 1 capsule, No 1 1 capsule, 1 time per 20 1 time per day, for 30 00:00 day, for days :00 30 days 1 patch No 1 1 patch q72hr 12 q72hr 00:00 :00 1 tablet, 1 No 1 1 tablet, time per 12-20 1 time per day po qhs 00:00 day po qhs , for 30 :00 , for 30 days days Problems Condition Condition Condition Status Onset Resolution Last Treatin g Comments Name Details Category Date Date Treatment Clinician Date Pain of Pain of Problem Active 2017-08 left Left 2-13 shoulder Shoulder 00:00: joint Joint 00 Monitoring Monitoring Problem Active 2017-08 of of 09-22 pacemaker Pacemaker 00:00: 00 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 Skin 00:00: 00 Kidney Kidney Problem Active disease Disease 2-07 00:00: 00 Stented Stented Problem Active artery Artery 9- 00:00: 00 Procedures Procedure Date / Time Performed Performing Clinician Dimas mckeon RADIOLOGIC EXAM SHOULDER 2 VIEWS 2018-07-23 00:00:00 CT NEURO OUTSIDE FILM FOR CONTINUED 2018-01-28 16:44:[address] NEURO OUTSIDE FILM FOR CONTINUED 2018-01-28 16:43:39 Reji Nolasco Cardiac Pacemaker Procedure 2017-08-25 00:00:00 SHOULDER JOINT SURGERY 2014-08-25 00:00:00 Gallbladder Surgery 2014-08-25 00:00:00 Total Knee Arthroscopy 2013-08-25 00:00:00 SHOULDER ARTHROSCOPY/SURGERY 2012-08-25 00:00:00 Ankle/Foot Surgery 2001-08-25 00:00:00 KIDNEY ENDOSCOPY & TREATMENT 1985-08-25 00:00:00 Results Test Description Test Time Test Comments Text Results Atomic Results Result Comments CT Neuro Outside Film For 2018-01-28 16:44:03 CT Neuro Outside Film For Continued Care Continued Care (01/28/2018 4:44 PM) Specimen Performing Laboratory [facility] Narrati ve These images were imported f or continued care purposes only . They will not be interpreted and no charges will apply. CT Neuro Outside Film For 2018-01-28 16:43:39 CT Neuro Outside Film For Continued Care Continued Care (01/28/2018 4:43 PM) Specimen Performing Laboratory [facility] Narrati ve These images were imported f or continued care purposes only . They will not be interpreted and no charges will apply. Stool Culture"/> 2016-08-14 00:00:00 Test Item Value Reference Range Comments Salmonella/Shigella Screen (test code = 84012-5) Final report Campylobacter Culture (test code = 6331-3) Final report E coli Shiga Toxin EIA (test code = 03399-4) Negative Neg ative Result 1 (test code = 6463-4) Campylobacter species C difficile Toxins A+B, EIA"/>2016-08-14 00:00:00 Test Item Value Reference Range Comments C difficile Toxins A+B, EIA (test code = 94498-9) Negative Negative Assessments Condition Name Status Diagnosis Date Treating Clinici an Pain of left shoulder joint Active 2018-12-17 11:17:34 Full thickness rotator cuff tear Active 2018-12-19 09:5 7:49 Pain of left shoulder joint Active 2018-08-06 09:56:55 Full thickness rotator cuff tear Active 2018-08-06 10:3 2:27 Pain of left shoulder joint Active 2018-07-23 09:40:46 Otitis externa ([id number]) Unknown 2010-12-13 16:58:59 Acute otitis externa, unspec ear Unknown 2010-12-13 16:5 8:59 ([id number]) Diarrhea ([id number]) Unknown 2010-12-13 16:58:59 Encounters Start End Encounter Admission Attending Care Care Encounter Date/Time Date/Time Type Type Clinicians Facility Department ID 2018-12-17 2018-12-17 Maite Saravia [id number] 00:00:00 00:00:00 Osmin, Surgical Surgical 0425 PAC: [address] [facility], [address], [place] [address], Ph. 2018-08-06 2018-08-06 Cas Saravia [id number] 00:00:00 00:00:00 Hoke: 2145 Surgical Surgical [address] [facility], [address], [place] [address], Ph. 2018-07-23 2018-07-23 Cas Saravia [id number] 00:00:00 00:00:00 Hoke: 2145 Surgical Surgical [address] [facility], [address], [place] [address], Ph. 2018-07-08 2018-07-08 Office/Outp Shanae, [facility] [id number] 09:54:40 15:01:40 hernesto Florez Medical Visit,[facility] III 2018-04-06 2018-04-06 Outpatient [facility] [id number] 00:00:00 00:00:00 [id number] 2018-03-30 Outpatient [facility] [id number] 00:00:00 00:00:00 [id number] 2018-03-20 Outpatient [facility] [id number] 00:00:00 00:00:00 2018-01-28 2018-01-28 Outpatient [facility] [id number] 16:43:03 23:59:00 OSCAR [id number] 2018-01-28 2018-01-28 Outpatient [facility] [id number] 16:43:03 23:59:00 2018-01-28 2018-01-28 [id number] 16:42:40 23:59:00 OSCAR [id number] 2018-01-28 2018-01-28 Outpatient [facility] [id number] 16:42:40 23:59:00 2018-01-26 2018-01-26 Outpatient [facility] [id number] 11:47:11 23:59:00 [id number] 2018-01-26 2018-01-26 [facility] [id number] 11:42:00 14:52:11 [id number] 2018-01-26 2018-01-26 Outpatient [facility] [id number] 11:42:00 14:52:11 2018-01-26 2018-01-26 Outpatient [facility] [id number] 11:47:11 13:00:00 2018-01-26 2018-01-26 Outpatient [facility] [id number] 00:00:00 00:00:00 [id number] 2018-01-26 Outpatient [facility] [id number] 00:00:00 00:00:00 2018-01-12 2018-01-12 Outpatient [facility] [id number] 00:00:00 00:00:00 [id number] 2016-08-14 Office/Outp Tres [facility] [id number] 14:37:21 23:19:11 [facility] 2010-12-13 2010-12-20 Office/Outp Arturo [facility] [id number] 12:58:59 13:09:41 t [facility] IV Immunizations Ordered Immunization Filled Immunization Date Status Commen ts Refusal Reason Name Name zoster 2017-09-17 Completed 00:00:00 Payers Payer Name Policy Type Policy Number Effective Date Expiration D ate [facility] [employer] LD (FEPNC) [366] MEDICARE PART A AND [id number] 2009 00:00:00 PART B [facility] [employer] [id number] 1995 00:00:0 0 Plan of Treatment Planned Activity Planned Date Details Comments Future Scheduled Test [code = ] Future Scheduled Test [code = ] Future Scheduled Test [code = ] Future Scheduled Test [code = ] Future Scheduled Test [code = ] Future Scheduled Test [code = ] Future Scheduled Test [code = ] Future Scheduled Test [code = ] Social History Social Habit Start Date Stop Date Comments History of tobacco use Non - drinker Sex Assigned At 2018-07-08 00:00:00 2018-07-08 00:00:00 Tobacco smoking status [facility] 2018-01-26 00:00:00 2018-01-26 00:00 :00 Cigarettes smoked current (pack per 2018-01-26 00:00:00 00:00:00 day) - Reported Cigarette pack-years 2018-01-26 00:00:00 2018-01-26 00:00:00 Smoking Status Start Date Stop Date Smoking status: Former smoker ([id number]) Vital Signs Vital Name Observation Time Observation Value Comments BP Diastolic 2018-12-17 00:00:00 87 mm[Hg] Height 2018-12-17 00:00:00 72 [in_i] BMI (Body Mass Index) 2018-12-17 00:00:00 33.9 kg/m2 BP Systolic 2018-12-17 00:00:00 131 mm[Hg] Body Weight 2018-12-17 00:00:00 250 [lb_av] BP Diastolic 2018-08-06 00:00:00 72 mm[Hg] Height 2018-08-06 00:00:00 72 [in_i] BMI (Body Mass Index) 2018-08-06 00:00:00 34 kg/m2 BP Systolic 2018-08-06 00:00:00 116 mm[Hg] Body Weight 2018-08-06 00:00:00 251 [lb_av] BMI (Body Mass Index) 2018-07-23 00:00:00 34 kg/m2 BP Systolic 2018-07-23 00:00:00 112 mm[Hg] Body Weight 2018-07-23 00:00:00 251 [lb_av] BP Diastolic 2018-07-23 00:00:00 81 mm[Hg] Height 2018-07-23 00:00:00 72 [in_i] Height 2018-07-08 09:58:00 185.4 cm Weight 2018-07-08 09:58:00 114.9 kg BMI 2018-07-08 09:58:00 33.42 kg/m2 Systolic blood pressure 2018-07-08 09:58:00 134 mm[Hg] Diastolic blood pressure 2018-07-08 09:58:00 76 mm[Hg] Body temperature 2018-07-08 09:58:00 37.3 Shelley Respiratory rate 2018-07-08 09:58:00 18 /min Heart rate 2018-07-08 09:58:00 79 /min Oxygen saturation in Capillary blood 2018-07-08 09:58:00 94 % by Oximetry SYSTOLIC BLOOD PRESSURE 2018-01-26 13:24:00 140 mm[Hg] DIASTOLIC BLOOD PRESSURE 2018-01-26 13:24:00 77 mm[Hg] HEART RATE 2018-01-26 13:24:00 62 /min HEIGHT 2018-01-26 13:24:00 182.9 cm WEIGHT 2018-01-26 13:24:00 110.315 kg Height 2016-08-13 14:38:00 185.4 cm Weight 2016-08-13 14:38:00 116.6 kg BMI 2016-08-13 14:38:00 33.9 kg/m2 Systolic blood pressure 2016-08-13 14:38:00 129 mm[Hg] Diastolic blood pressure 2016-08-13 14:38:00 78 mm[Hg] Body temperature 2016-08-13 14:38:00 37.1 Shelley Respiratory rate 2016-08-13 14:38:00 18 /min Heart rate 2016-08-13 14:38:00 73 /min Oxygen saturation in Capillary blood 2016-08-13 14:38:00 96 % by Oximetry Weight 2010-12-13 12:44:00 103.1 kg Systolic blood pressure 2010-12-13 12:44:00 122 mm[Hg] Diastolic blood pressure 2010-12-13 12:44:00 78 mm[Hg] Body temperature 2010-12-13 12:44:00 36.7 Shelley Respiratory rate 2010-12-13 12:44:00 18 /min Heart rate 2010-12-13 12:44:00 63 /min Oxygen saturation in Capillary blood 2010-12-13 12:44:00 95 % by Oximetry Hospital Discharge Instructions 1. Pain of left shoulder joint 2. Full thickness rotator cuff tear Discussion Note Surgery Counseling We discussed various methods of treatment for this diagnosis, including both non-surgical and surgical treatment options. The procedure was discussed in detail, including rationale for proceeding withthe procedure, specifics of the technical aspects of the procedure, and the expected postoperative course including the possible need for activity modification, therapy, and duration of expected recovery. Risks to surgery include: pain, numbing, scar, infection, loss of motion, nerve or vascular injury, stiffness, blood loss, reoccurrence, re-operation, non-union or mal-union, fracture, dislocation, unequal leg lengths, allergic reaction to medicine, heart attack, stroke or . Risks of allograftand blood transfusions include; infection, allergic reaction, disease transmission including hepatits or AIDS virus. Complications, including blood loss and potential need for transfusion, nerve injury, infection, success rates (expected outcomes) of the procedure, and risk of from anesthesia were discussed. Patient fully understands that there are no guarantees with surgical intervention. The patient voiced understanding of the procedure and risks, and the decision for surgery was made today.Patient educational handouts: No information available.1. Pain of left shoulder joint XR, shoulder Discussion Note I feel he has some rotator cuff pathology. Whether this is tendinitis or bursitis or significant tear started discern. I would like to obtain more advanced imaging. He recently had an implanted cardiac later/pacemaker placed. This appearsto be MRI compatible however we will need to check with the time study technologist. If it is I would like to get an MRI of the left shoulder. He will follow up after that study. If it is not MRI compatible a CT a rthrogram can be obtained. Patient educational handouts: No information available.Patient was given instructions Patient Education given to patient, Care Plan given to patient, Diet and exercise advised, Medication Education given., RTC if no improvement., rtc in 6 weeks Visit Date Instructions 2016-08-13 Patient Education given to patient: , Diarrhea (medline) Care Plan given to patient: Patient Care-plan Report Diet and exercise advised: Medication Education given.: 2018-07-08 RTC if no improvement.: rtc in 6 weeks: Patient was given education Diarrhea (medline) , amoxicillin 875 mg tablet Date Patient Education 2016-08-14 Diarrhea (medline) (Patient given patient education dhaval wasserman in encounter) 2018-07-08 amoxicillin 875 mg tablet (Patient given patient education material in encounter)
== END 2020-09-18 16:47 | disposition home or self-care (01) | DRG 177 ==
LOC: ER 10:08 → EH 13:14 → 3N 15:40
PROVIDERS: ADMIT Hospitalist; ATTEND Physician Assistant
DX: U07.1 COVID-19 (principal); J12.82 Pneumonia due to coronavirus disease 2019; J96.01 Acute respiratory failure with hypoxia; I13.0 Hypertensive heart and chronic kidney disease with heart failure and stage 1 through stage 4 chronic kidney disease, or unspecified chronic kidney disease; N17.9 Acute kidney failure, unspecified; E87.1 Hypo-osmolality and hyponatremia; C64.9 Malignant neoplasm of unspecified kidney, except renal pelvis; K21.9 Gastro-esophageal reflux disease without esophagitis; I50.9 Heart failure, unspecified; N18.9 Chronic kidney disease, unspecified; M19.90 Unspecified osteoarthritis, unspecified site; Z95.0 Presence of cardiac pacemaker
CPT/HCPCS: 36415; 71045; 71250; 80048; 80053; 81001; 82330; 82728; 82803; 83605; 83615; 83880; 84145; 84484; 85025; 85027; 85379; 85610; 85652; 86140; 87040; 93005; 93010; 94640; 94799; 96365; 96375; 99285; J0610; 0202U; C9803; J1100; J1644; J1956; J2920; J3370; J3490; J7030; S0028